=== PATIENT | female | born 1940 | race Caucasian/White ===

== ENCOUNTER 2023-06-29 19:06 | Emergency (ER) | payer MEDICARE, BC, SELFPAY ==
[2023-06-29 19:08] VITALS: BP 135/82
--- NOTE | 2023-06-29 21:02 | ED.MUSCINJ ---
HPI-Injury
General
Chief Complaint: Fall
Source: patient
Exam Limitations: none
Time Seen by Provider: 06/29/23 20:43
Travel History
Have you had any contact with someone who has COVID-19?: No
Do you have any symptoms of coronavirus? Fever > 100 degrees, chills, cough, shortness of breath, sore throat, loss of taste or smell, muscle aches, or headache?: No
History of Present Illness-Injury
Initial Injury comments:
83 year old female presents after slip and fall at home. She complains of left wrist/forearm pain and mentioned to me left hip pain. NO head injury. No neck or back pain. Not anticoagulated. Lives independently. No other complaints at this
time.
Past History
Past History
ED Past Medical History: Other (Agree with documented past medical history Patient self catheterizes)
ED Past Surgical History: Other (Agree with documented past surgical history)
Social History
Tobacco: Non-smoker
Personal: Single
Living: alone
Phy Exam
Physical Exam
Physical Exam:
General: well appearing female, NAD.
HEENT: NC/AT PERRL
Heart: RRR, no murmurs
Lungs: CTA bilaterally
MSK: tender to left wrist with mild left wrist swelling, dorsally
Left hip slightly tender laterally, no deformities
Ext: No cyanosis
Neuro: Alert and oriented x 3. No facial asymmetry
Injury Course
Orders/Labs/Results
Orders:
Orders
06/29/23 19:10
CR Elbow - Left Min 3 Views Urgent
Comment:
Reason For Exam: injury
CR Forearm - Left 2 View Urgent
Comment:
Reason For Exam: injury
CR Wrist - Left Min 3 Views Urgent
Comment:
Reason For Exam: injury
06/29/23 20:52
[place] Wrist Left-Treatment ONCE
CR Hip - LT w/wo Pel 2-3 Vw* Urgent
Comment:
Reason For Exam: pain, left hip after fall
Include a pelvis x-ray?: Yes
06/29/23 22:10
Acetaminophen [Tylenol] 650 mg PO NOW STA
MDM/Problems Addressed
Differential Diagnosis Includes:
Mechanical fall with left wrist pain - sprain vs fracture vs dislocation
Left hip pain - contusion vs fracture
Xrays left wrist negative for fracture. Will place in universal splint
*Critical Care Note
Total Time (30-74mins, 75-104mins- exclusive of procedures): Not Applicable
Update Note
Update Note:
X-ray of the left hip also negative. Patient reassured. Stable for discharge back to facility
ED Attending Note
-
Portions of this chart may have been created with voice recognition software.� Occasional wrong word or��sound alike� substitutions may have occurred due to the inherent limitations of voice recognition software.
Discharge Plan
Departure
Patient Disposition: Home (Routine Discharge)
Date of Disposition: 06/29/23
Time of Disposition: 22:19
Patient with high blood pressure during this ER visit?: No
Discharge Problem:
Left wrist sprain
Instructions: Contusion (DC)
Referrals:
Penny Ridley, [Family Provider] -
Activity Restrictions/Additional Instructions:
Use Tylenol for pain. Use splint for comfort. Ice for swelling. Return if worse
Interventions
Interventions:
*Risk Screen - Suicide Last Done: 06/29/23 19:08
*General Assessment Last Done: 06/29/23 19:08
ED- Fall Risk Assessment Last Done: 06/29/23 21:27
ED-Musculoskeletal Assessment Last Done: 06/29/23 21:27
ED- Neurological Assessment Last Done: 06/29/23 21:27
ED-Skin Assessment Last Done: 06/29/23 21:28
[2023-06-29] MEDS: TYLENOL 650 MG PO (22:18)
== END 2023-06-29 23:44 | disposition home or self-care (01) ==
LOC: EMR 19:06
PROVIDERS: EMERGENCY PHYSICIAN Emergency Medicine; FAMILY PHYSICIAN Internal Medicine
DX: S63.502A Unspecified sprain of left wrist, initial encounter (principal); W01.0XXA Fall on same level from slipping, tripping and stumbling without subsequent striking against object, initial encounter; Z96.642 Presence of left artificial hip joint
CPT/HCPCS: 99283; 29125; 73080; 73090; 73110; 73502

== ENCOUNTER 2024-02-26 11:07 | Inpatient (IN) | payer MEDICARE, BC, SELFPAY ==
[2024-02-26] VITALS (13 sets, daily range): BP systolic 113–157; BP diastolic 58–136; BMI 25.8; BMI 26.1
[2024-02-26 06:53] LABS: % Eosinophils 2.9 % (0-6); % Immature Granulocytes 0.6 % (0-0.5); % Lymphocytes 10.4 % (20.5-51.1); % Monocytes 10.1 % (1.7-9.3); Absolute Basophils 0.1 10^3/uL (0-0.2); Absolute Eosinophils 0.2 10^3/uL (0-0.7); Absolute Lymphocytes 0.7 10^3/uL (1.2-3.4); Absolute Monocytes 0.7 10^3/uL (0.1-0.6); Absolute Neutrophils 5.4 10^3/uL (1.4-6.5); Hematocrit 28.2 % (37.0-47.0); Hemoglobin 8.4 g/dL (12.0-16.0); Mean Corp Hgb Conc. 29.8 g/dL (33.0-37.0); Mean Corpuscular Hgb 21.1 pg (27.0-31.0); Mean Corpuscular Volume 70.7 fL (81.0-99.0); Mean Platelet Volume 10.3 fL (7.4-10.4); Nucleated Red Blood Cells % 0 %; Platelet Count 437 10^3/uL (130-400); Red Blood Cell Count 3.99 10^6/uL (4.20-5.40); Red Cell Dist. Width 16.5 % (11.5-14.5); White Blood Cell Count 7.1 10^3/uL (4.8-10.8)
[2024-02-26 07:05] LABS: ALT (SGPT) 16 U/L (0-35); AST (SGOT) 22 U/L (14-36); Albumin 4.3 g/dl (3.5-5.0); Alkaline Phosphatase 72 U/L (38-126); Blood Urea Nitrogen 40 mg/dl (7-17); Calcium 9.7 mg/dl (8.4-10.2); Carbon Dioxide 21 mmol/L (22-30); Chloride 108 mmol/L (98-107); Estimated Creatinine Clearance 27 ml/min; Glucose 131 mg/dl (70-99); Sodium 142 mmol/L (135-145); Total Bilirubin 0.8 mg/dl (0.2-1.3); Total Protein 6.8 g/dl (6.3-8.2); eGFR 40.05
[2024-02-26 07:19] LABS: Troponin I 0.082 ng/ml
--- NOTE | 2024-02-26 07:41 | ED.GENMED ---
History of Present Illness
General
Chief Complaint: Chest Pain
Source: patient
Time Seen by Provider: 02/26/24 07:21
History of Present Illness
History of Present Illness:
84yoF with a history of coronary artery disease, atrial fibrillation, hypertension, hyperlipidemia, CKD, and chronic anemia presenting via EMS for evaluation of chest pain. Pain initially started at 10:30 PM yesterday evening after she ate some
peanut butter. She reports an intense pain in the center of her chest. Pain began radiating across the chest into her back and right shoulder. Pain persisted throughout the night and she was unable to sleep due to her pain. She called EMS this
morning due to her persistent symptoms. She received aspirin and nitroglycerin prehospital with complete resolution of her symptoms. She is currently asymptomatic. She denies any diaphoresis or nausea. She does endorse exertional dyspnea for the
past 6 months. She follows with cardiology at [place]. She had a cardiac catheterization about 4 years ago and a stent was placed at that time.
Past History
Past History
ED Past Medical History: Other (Agree with documented past medical history Patient self catheterizes)
ED Past Surgical History: Other (Agree with documented past surgical history)
Social History
Tobacco: Non-smoker
Personal: Single
Living: alone
Phy Exam
General Physical Exam
General Presentation: well appearing and no apparent distress
General age: appears stated age
General Skin: warm and dry
General Habitus: normal
General Mental: alert
ENT Exam
ENT Exam: normocephalic
Cardiovascular Exam
Cardiovascular Exam: no edema, normal peripheral pulses (2+ DP pulses bilaterally) and systolic murmur
Pulmonary Exam
Pulmonary Exam: lungs clear, no respiratory distress, no rales, no crackles, no rhonchi and no wheezing
[place] Coma Scale
Eye Opening: Spontaneous
Verbal Response: Oriented
Motor Response: Obeys Commands
GCS Total Score: 15
Skin Exam
Skin Exam: normal color and warm/dry
Psychiatric Exam
Psychiatric Exam: normal mood/affect
Scores
Heart Score for Chest Pain Patients
STEMI patient?: No
History: Highly Suspicious
ECG: Nonspecific Repolarization
Age: >/= 65 years
Risk Factors: >/= 3 Risk Factors or History of CAD
Troponin: >1 - <3 x Normal Limit
Heart Score for Chest Pain Patients: 8
Heart Score Risk: 72.7 % MACE over next 6 weeks
Course
Orders/Labs/Results
Orders:
Orders
02/26/24 06:16
ECG [Electrocardiogram (*1)] Urgent
Reason for Study: Chest Pain
02/26/24 06:17
EKG- Treatment ONCE
02/26/24 06:34
Complete Blood Count/With Diff Urgent
Comprehensive Metabolic Panel Urgent
Troponin I Urgent
02/26/24 06:35
PTT Urgent
Comment: Obtain baseline before beginning heparin infusion if not already collected
02/26/24 07:[address] See Dose Instructions PO NOW STA
Discontinue all Active Warfarin orders?: Yes
CR Chest - 2 Views Urgent
Comment:
Reason For Exam: CP
02/26/24 07:[address] Non Medication Order As Directed
Physician Order: PTT 6 hours after initial start of Heparin infusion
Above order entered?: Yes
02/26/24 07:45
CARDIOLOGY CONSULT Urgent
Consulting Provider: Chris Benson
Was physician already notified: Yes
Heparin 09723 Units/250 ml 25,000 units in 250 ml IV PER PROTOCOL
Weight to be used for heparin protocol in kilograms (kg):: 68.1
Protocol:: Cardiac Tx/Acute Coronary
PTT Goal Range to be used:: PTT 73 to 111 seconds
Order type:: Initial
INITIAL Infusion Dose (UNITS/KG/hr) & then follow protocol:: 12 units/kg/hr
Infusion Dose in UNITS/hr & then follow protocol (UNITS/hr):: 800
INFUSION RATE in mL/hr & then follow protocol (mL/hr):: 8
PTT less than or equal to 64 seconds:: Increase rate by 200 units/hr (+ 2 mL/hr)
PTT 64.1 to 72.9 seconds:: Increase rate by 100 units/hr (+ 1 mL/hr)
PTT 73 to 111 seconds:: Target Range. No change in rate.
PTT 111.1 to 130.9 seconds:: Decrease rate by 100 units/hr (- 1 mL/hr)
PTT 131 to 199.9 seconds:: HOLD for 1 hr. Then decrease rate by 200 units/hr (- 2 mL/hr)
PTT greater than or equal to 200 seconds:: HOLD for 2 hrs & Notify Provider. Then decrease by 200 units/hr (-
2 mL/hr)
Lab follow-up:: Each change, PTT q6h until 2 consecutive are therapeutic. Then PTT
daily.
02/26/24 08:[address] See Dose Instructions IV DIRECTED
02/26/24 08:17
CARDIOLOGY CONSULT Routine
Consulting Provider: Chris Benson
Was physician already notified: Yes
Reason for consult: NSTEMI and Chest Pain
02/26/24 Lunch
NPO
Allow oral meds: Yes
Allow clear liquids: Sips of Clears
NPO with Ice Chips: Yes
02/26/24 10:32
Add On- LAB Routine
Tests Added?: Lipase
02/26/24 10:50
Admit/Transfer Patient As Directed
Co-Sign Provider:
Level of Care: Inpatient admission
Assign to:: IVU
Physician / Group: Dr. Miah Duran/Hospitalists
Diagnosis: Suspected NSTEMI
Reason for Hospitalization: Suspected NSTEMI
Expected length of stay greater than two midnights?: Yes
ELOS- Estimated Length of Stay in days: 3
I certify the patient meets the requirements for IP care: Yes
PRN Pain Medication Management As Directed
May give lesser potent ordered pain med per pt: Yes
preference::
Protocol:: Medication orders for pain may be administered in a
manner that supports deferring to patient preference
when the pt is:
- Requesting an ordered lesser potent pain medication.
Least to most potent pain medications are defined
as: acetaminophen < NSAID < tramadol < opioids
(morphine, oxycodone, hydromorphone).
- Requesting a lesser dose of the same medication IF
ORDERED.
- Requesting a less intrusive route of administration
if both routes are prescribed by the provider (PO <
IV).
02/26/24 10:51
Code Status As Directed
Resuscitation Status: Full Code
02/26/24 11:06
US Abdomen Complete/Upper Routine
Comment:
Reason For Exam: Pancreatitis?
02/26/24 12:25
Troponin I Q6H
02/26/24 13:27
Bisacodyl [Dulcolax] 10 mg RECTAL [id number] PRN
Docusate W/Senna [Senokot-S] 1 tablet PO BIDPRN PRN
Polyethylene Glycol Powder [Miralax] 17 grams PO DAILYPRN PRN
02/26/24 13:27
Activity As Directed
Activity Level: As Tolerated
Pneumatic Compression Sleeves As Directed
Type: Knee high
Vital Signs As Directed
Frequency: Per unit guidelines
DX Deep Vein Thrombosis Video Routine
02/26/24 14:30
PTT Urgent
02/26/24 18:30
Troponin I Q6H
02/27/24 00:30
Troponin I Q6H
02/27/24 06:00
Basic Metabolic Panel IN AM
Complete Blood Count/With Diff IN AM
Magnesium IN AM
02/27/24 06:30
Troponin I Q6H
02/28/24 06:00
Basic Metabolic Panel IN AM
Complete Blood Count/With Diff IN AM
Magnesium IN AM
02/29/24 06:00
Basic Metabolic Panel IN AM
Complete Blood Count/With Diff IN AM
Magnesium IN AM
Abnormal Lab Results
02/26/24
06:34
RBC 3.99 L 10^6/uL
(4.20-5.40)
Hgb 8.4 L g/dL
(12.0-16.0)
Hct 28.2 L %
(37.0-47.0)
MCV 70.7 L fL
(81.0-99.0)
MCH 21.1 L pg
(27.0-31.0)
MCHC 29.8 L g/dL
(33.0-37.0)
RDW 16.5 H %
(11.5-14.5)
Plt Count 437 H 10^3/uL
(130-400)
Absolute Lymphs (auto) 0.7 L 10^3/uL
(1.2-3.4)
Absolute Monos (auto) 0.7 H 10^3/uL
(0.1-0.6)
Immature Gran % 0.6 H %
(0-0.5)
Lymphocytes % 10.4 L %
(20.5-51.1)
Monocytes % 10.1 H %
(1.7-9.3)
Chloride 108 H mmol/L
(98-107)
Carbon Dioxide 21 L mmol/L
(22-30)
BUN 40 H mg/dl
(7-17)
Creatinine 1.3 H mg/dL
(0.6-1.0)
Glucose 131 H mg/dl
(70-99)
Troponin I 0.082 H* ng/ml
02/26/24 06:34
02/26/24 06:34
Vital Signs
Initial and Last Documented VS:
Initial Vital Signs
Temp Pulse Resp BP Pulse Ox
98.0 F 75 16 125/84 98
02/26/24 06:26 02/26/24 06:26 02/26/24 06:26 02/26/24 06:26 02/26/24 06:26
Last Documented Vital Signs
Temp Pulse Resp BP Pulse Ox
98.1 F 79 22 134/91 99
02/26/24 13:20 02/26/24 13:30 02/26/24 13:20 02/26/24 13:20 02/26/24 13:20
MDM/Problems Addressed
Differential Diagnosis Includes:
84yoF here with chest pain. Started last night after eating peanut butter. Radiates to R shoulder and back. Now resolved after receiving aspirin and NTG prehospital. Hx of CAD. She is afebrile and hemodynamically stable. She is well appearing in no
distress. Exam is reassuring. Differential diagnosis includes but is not limited to: ACS, GERD, esophagitis, less likely PE, less likely aortic dissection
Cardiac labs and EKG obtained in triage. EKG shows NSR with PACs and nonspecific ST/T changes. Troponin elevated at 0.082. CXR and IV heparin ordered. Cardiology notified of patient and she was admitted for further evaluation and management.
*EKG
Interpreted by ED Provider?: Yes
EKG Intrepretation Date: 02/26/24
Heart Rate: 71
Rate: normal
Rhythm: sinus and PAC's
[place]: normal axis
Interval: normal interval
QRS Pattern: normal QRS
Ischemia: non-specific ST changes
*Critical Care Note
Total Time (30-74mins, 75-104mins- exclusive of procedures): Not Applicable
ED Attending Note
-
Portions of this chart may have been created with voice recognition software.� Occasional wrong word or��sound alike� substitutions may have occurred due to the inherent limitations of voice recognition software.
Discharge Plan
Departure
Patient Disposition: Admit
Date of Disposition: 02/26/24
Time of Disposition: 07:46
Presentation/result/management discussed w/ accepting MD/DO: Hospitalist
Discharge Problem:
Non-ST elevation [place] (NSTEMI)
Interventions
Interventions:
*Risk Screen - Suicide Last Done: 02/26/24 06:18
*General Assessment Last Done: 02/26/24 06:44
*Neglect/Abuse Screening Last Done: 02/26/24 06:18
ED- Fall Risk Assessment Last Done: 02/26/24 06:45
*ED COVID-19 Vaccine History Last Done: 02/26/24 06:45
*Nursing Disposition Last Done: 02/26/24 13:21
ED- Cardiac Assessment Last Done: 02/26/24 07:44
Discharge Date and Time
Discharge Date/Time: 02/26/24 13:21
[2024-02-26] MEDS: HEPARIN 25000 UNITS/250 ML IV (08:29)
--- NOTE | 2024-02-26 08:45 | CON.CAR ---
Addendum entered and electronically signed by Chris Benson MD 02/26/24 12:51:
Will make NPO after MN for possible cor angiography in AM
Original Note:
Consultation
Consultation Request
Date/Time Consultation Requested: February 26, 2024
Date/Time Consultation Performed: February 26, 2024
Requesting Provider: Hospitalist service
Performing Provider: Dr Chris Benson
Reason for Consultation: Non-ST segment elevation myocardial infarction
Medical History
-
Chief Complaint: Chest pain
History of Present Illness:
84-year-old woman with known history of coronary artery disease, atrial fibrillation, hypertension, dyslipidemia, chronic kidney disease, chronic anemia presented to [facility] emergency department via emergency medical services for
evaluation of chest pain. She notes that her chest pain started last night at around 10:30 PM after she had something to eat. She describes this as an intense pain at the center of her chest which radiated across the chest to her right shoulder
and also into her back. Pain persisted through the night and was unable to sleep well. She called emergency medical services this morning due to continued symptoms. On route she received aspirin as well as nitroglycerin leading to complete
resolution of her symptoms. She is asymptomatic on arrival to the emergency department. She reports that for the preceding 6 months she has had new dyspnea on exertion.
- Presenting EKG demonstrates sinus rhythm with PACs and nonspecific ST and T wave abnormalities
- Blood work demonstrates initial troponin of 0.082, BUN and creatinine of 40 and 1.3, sodium 142, potassium 4, hemoglobin and hematocrit of 8.4 and 28
- Chest x-ray demonstrates a cardiac silhouette which is top normal in size. There is an implanted loop recorder (LINQ) evident. There is no vascular congestion.
Past medical history:
Coronary artery disease, she reports 'stent placed' at [facility] approximately 4 years ago
Chronic kidney disease
Chronic anemia
Atrial fibrillation
Hypertension
Social History
Tobacco: Non-Smoker
Alcohol: None
Drug: None
Personal: Single
Living: Alone
Family History
Family History: Reviewed & Not Pertinent
Allergies / Home Medications
Allergy/AdvReac Type Severity Reaction Status Date / Time
NKA - No Known Allergies Allergy Unknown Uncoded 02/26/24 06:23
Review of Systems
-
History Source: Patient
All other systems: Negative unless noted
Constitutional: No Symptoms
EENT: No Symptoms
Respiratory: No Symptoms
Cardiac: Chest Pain (resolved)
Abdomen/GI: No Symptoms
: No Symptoms (has chronic indwelling suprapubic catheter)
Musculoskeletal: No Symptoms
Skin: No Symptoms
Neurological: No Symptoms
Physical Exam
Vital Signs
Temp Pulse Resp BP Pulse Ox
98.0 F 71 16 125/84 98
02/26/24 06:26 02/26/24 06:30 02/26/24 06:26 02/26/24 06:26 02/26/24 07:44
Lab Results
02/26/24 06:34
02/26/24 06:34
Troponin I 0.082 ng/ml H* 02/26/24 06:34
Physical Exam
General: Well Developed, Well Nourished, No Apparent Distress and Comfortable
HEENT: Normocephalic, Anicteric and Moist Mucous Membranes
Respiratory: Clear and Non Labored Respirations
Cardiac: S1/S2, Regular Rhythm and Murmur (/ AHSM, no rubs, nl PMI)
Breast: Deferred by me
GI: Soft, Non Tender, Non Distended and Normal Bowel Sounds
Rectal: Deferred by Provider
Musculoskeletal: No Clubbing, No Cyanosis and No Edema
Skin: Warm and Dry
Neuro: Awake, Alert, Oriented and AO x 3
Psych: Calm
Impression / Plan
-
Assessment:
Non-ST segment elevation myocardial infarction
Coronary artery disease, she reports 'stent placed' at [facility] approximately 4 years ago
Chronic kidney disease
Chronic anemia
Atrial fibrillation
Hypertension
Recommendations:
- Agree with IV heparin
- Asa 81 mg daily
- betablocker (is on metoprolol tartrate 37.5 BID as outpatient) will start Succinate 50 mg BID as I suspect HR and BP will tolerate
- On pravastatin 20 mg as outpatient, will instead start atorvastatin 20 mg daily
- Check Lipids in AM
- Also on Norvasc for HTN as outpatient 10 mg daily, medicine to resume if BP remains elevated
- Eventual consideration for ischemic eval, but trend troponin and ECGs for now
total time 81 min
Data Reviewed
-
EKG: Tracing Personally Visualized and interpreted
Radiology: Report Reviewed by me
Medical Tests (Nuc Med, Echo etc): Report Reviewed by me
Labs: Labs Reviewed by me
--- NOTE | 2024-02-26 09:01 | HPS.HSE ---
Family Physician
-
Family Physician: Penny Ridley
Chief Complaint
-
Epigastric Pain
History of Present Illness
84 y/o female with past medical history of coronary artery disease, atrial fibrillation, hypertension, dyslipidemia, chronic kidney disease, chronic urostomy, and chronic anemia presented with epigastric pain. Patient says she has shortness of
breath all the time. She said that prior to coming in, she was cleaning the close, ironing and doing laundry, she then became hungry and 3 teaspoons of peanut butter, after that she felt that she had pain going from her epigastric area to her back.
The pain was relieved with nitroglycerin.
She also reported chronic constipation.
Medical History
Past Medical History
Past Medical History: Reports Other (As per HPI above)
Past Surgical History: Reports Urological (Urostomy)
Social History
Tobacco: Non-smoker
Alcohol: Occasional
Drug: None
Family History
Family History: Not pertinent
Allergies / Home Medications
Allergies reflects when Allergies were last updated in [facility].
Home Medications with original date entered in [facility]
Allergy/Medication List:
Allergies
Allergy/AdvReac Type Severity Reaction Status Date / Time
NKA - No Known Allergies Allergy Unknown Uncoded 02/26/24 06:23
Home Medications
acetaminophen 500 mg tablet 1,000 mg PO BID pain/fever 02/26/24
amlodipine 10 mg tablet 10 mg PO HS Blood Pressure 02/26/24
aspirin 81 mg chewable tablet 81 mg PO DAILY Blood Clot Prevention/Tx 02/26/24
cranberry fruit concentrate 250 mg chewable tablet (Azo Cranberry) 500 mg PO DAILY Supplement 02/26/24
cyanocobalamin (vitamin B-12) 500 mcg tablet 500 mcg PO DAILY Supplement 02/26/24
duloxetine 30 mg capsule,delayed release 30 mg PO DAILY Depression 02/26/24
famotidine 40 mg tablet 40 mg PO DAILY Gastrointestinal Issue 02/26/24
guaifenesin 600 mg tablet, extended release 12 hr (Mucus Relief ER) 600 mg PO DAILY Cough 02/26/24
isosorbide dinitrate 30 mg tablet 30 mg PO DAILY Blood Pressure 02/26/24
levothyroxine 112 mcg tablet 112 mcg PO MOTUWETHFRSA Thyroid 02/26/24
levothyroxine 112 mcg tablet 168 mcg PO LITTLE Thyroid 02/26/24
metoprolol tartrate 25 mg tablet 37.5 mg PO BID Blood Pressure 02/26/24
pravastatin 20 mg tablet 20 mg PO HS High Cholesterol 02/26/24
prednisone 2.5 mg tablet 7.5 mg PO DAILY Anti-Inflammatory 02/26/24
quetiapine 25 mg tablet 25 mg PO HS Sleep 02/26/24
Review of Systems
-
A 12 point ROS was completed and negative except as noted: Yes
Physical Exam
Vital Signs
Vital Signs
Temp Pulse Resp BP Pulse Ox
98.0 F 80 18 157/84 99
02/26/24 06:26 02/26/24 08:00 02/26/24 08:00 02/26/24 08:00 02/26/24 08:00
Physical Exam
General: No Apparent Distress, Comfortable and Other (Hard of Hearing)
HEENT: NormoCephalic and Moist mucous membranes
Respiratory: Clear
Cardiac: S1/S2, Regular Rhythm and Murmur (systolic)
GI: Soft, Non Tender and Normal Bowel Sounds
Musculoskeletal: No Cyanosis and No Edema
Skin: Warm and Dry
Neuro: Awake, Alert and AO x 3
Psych: Calm and Intact Judgment/Insight
Laboratory Results
-
02/26/24 06:34
02/26/24 06:34
Laboratory Results
APTT 30.0 Sec (23.4-35.0) 02/26/24 06:35
Total Bilirubin 0.8 mg/dl (0.2-1.3) 02/26/24 06:34
AST 22 U/L (14-36) 02/26/24 06:34
ALT 16 U/L (0-35) 02/26/24 06:34
Alkaline Phosphatase 72 U/L (38-126) 02/26/24 06:34
Troponin I 0.082 ng/ml H* 02/26/24 06:34
Impression/Plan
-
Assessment/Plan
Presentation with Epigastric Pain
Suspected NSTEMI
Coronary artery disease
-Per ER provider communication via [place] Text today, patient received Aspirin 325 mg prior to arrival in the emergency room
-Continue Heparin Drip
-Continue Aspirin 81 mg daily
-Trend troponins
-Patient is on Lopressor BID outpatient --> per cardiology, switch to Metoprolol Succinate 50 mg BID
-Per cardiology discussion via [place] Text communication, okay to hold Isosorbide Dinitrate 30 mg daily for today but okay to resume tomorrow
-Continue statin; consider switching to high-intensity Lipitor on discharge
-Lipid panel
-Discussed case with GI (given epigastric pain and pain after eating, possible dysphagia) who said continue cardiac work-up for now, can check Lipase and order abdominal ultrasound to check for any pancreatitis, no need for GI consult at this time
Atrial fibrillation
-Continue Heparin Drip and beta rachid
Hypertension
Hyperlipidemia
Chronic kidney disease
-Cr 1.3
-Unknown baseline
Chronic urostomy
Chronic anemia
-Monitor CBC
Osteoarthritis
History of Rheumatoid Arthritis (as report by patient)
-Continue Prednisone
Chronic Constipation
-PRN bowel regimen
DVT Prophylaxis: Heparin Drip
Code Status: Full Code
NSTEMI needing Heparin Drip and monitoring in the IVU/cardiac unit is a high-risk encounter.
--- NOTE | 2024-02-26 13:28 | PTCARENOTE ---
Pt arrived from ED. received report from ED RN. AOx3, no complaints of pain or discomfort. heparin gtt infusing per protocol.
[2024-02-26] MEDS: VITAMIN B-12 500 MCG PO (14:57)
[2024-02-26] MEDS: MUCINEX 600 MG PO (14:58)
[2024-02-26] MEDS: PEPCID 20 MG PO (14:58)
[2024-02-26] MEDS: CYMBALTA DELAYED RELEASE 30 MG PO (14:58)
[2024-02-26] MEDS: DELTASONE 7.5 MG PO (14:58)
[2024-02-26] MEDS: TOPROL XL 50 MG PO ×2 (14:58→20:15)
[2024-02-26] MEDS: SYNTHROID PO (16:32)
--- NOTE | 2024-02-26 16:38 | PTCARENOTE ---
Pt c/o brief chest pain. unable to rate on 0-10 scale because 'it came and went so quick'. Dr Duran and Dr Benson made aware, orders received. Will continue to monitor.
[2024-02-26 16:48] LABS: APTT 66.5 Sec (23.4-35.0)
[2024-02-26 17:30] LABS: Lipase 260 U/L (23-300)
[2024-02-26] MEDS: TYLENOL 1000 MG PO (20:10)
--- NOTE | 2024-02-26 21:06 | PTCARENOTE ---
Received patient at change of shift. Patient awake, alert, and oriented in bed. Pt denies any chest pain. BP 123/72, NSR w/ first degree 77-80, 98% on room air. Heparin drip running at 900 units/hr in left AC. Discussed being NPO at midnight for
possible cardiac cath in the morning. Patient verbalized understanding. Call rosales within reach.
[2024-02-26] MEDS: NORVASC 10 MG PO (22:28)
[2024-02-26] MEDS: PRAVACHOL 20 MG PO (22:28)
[2024-02-26] MEDS: SEROQUEL 25 MG PO (22:29)
[2024-02-26 22:55] LABS: APTT 89.1 Sec (23.4-35.0)
[2024-02-27] VITALS (9 sets, daily range): BP systolic 84–126; BP diastolic 49–75; BMI 26.4
--- NOTE | 2024-02-27 05:31 | PTCARENOTE ---
Patient rested well all night. No c/o of chest pain. Patient has been NPO since midnight.
[2024-02-27 05:36] LABS: APTT 136.5 Sec (23.4-35.0)
[2024-02-27 05:40] LABS: % Basophils 1.1 % (0-2); % Immature Granulocytes 0.3 % (0-0.5); % Lymphocytes 18.1 % (20.5-51.1); % Monocytes 10.5 % (1.7-9.3); Absolute Basophils 0.1 10^3/uL (0-0.2); Absolute Eosinophils 0.2 10^3/uL (0-0.7); Absolute Lymphocytes 1.1 10^3/uL (1.2-3.4); Absolute Monocytes 0.7 10^3/uL (0.1-0.6); Absolute Neutrophils 4.2 10^3/uL (1.4-6.5); Hematocrit 26.7 % (37.0-47.0); Hemoglobin 7.9 g/dL (12.0-16.0); Mean Corp Hgb Conc. 29.6 g/dL (33.0-37.0); Mean Corpuscular Hgb 21.1 pg (27.0-31.0); Mean Corpuscular Volume 71.4 fL (81.0-99.0); Mean Platelet Volume 10.7 fL (7.4-10.4); Nucleated Red Blood Cells % 0 %; Platelet Count 368 10^3/uL (130-400); Red Blood Cell Count 3.74 10^6/uL (4.20-5.40); Red Cell Dist. Width 16.4 % (11.5-14.5); White Blood Cell Count 6.3 10^3/uL (4.8-10.8)
[2024-02-27 05:48] LABS: Blood Urea Nitrogen 33 mg/dl (7-17); Calcium 9.3 mg/dl (8.4-10.2); Carbon Dioxide 21 mmol/L (22-30); Chloride 111 mmol/L (98-107); Estimated Creatinine Clearance 27 ml/min; Glucose 95 mg/dl (70-99); Magnesium 2.6 mg/dl (1.6-2.3); Potassium 4.1 mmol/L (3.5-5.1); Sodium 142 mmol/L (135-145); eGFR 44.08
[2024-02-27] MEDS: SYNTHROID 112 MCG PO (06:14)
--- NOTE | 2024-02-27 08:04 | PTCARENOTE ---
Assumed care of pt from prev nsg shift; Pt AAOx3, drowsy but easily arousable. Pt is very [facility] & does not have hearing aids here w/her. Pt's VS stable w/HR in the 50's-60's & BP this AM 112/69. Pt is SB/SR w/1st deg AV block on telemetry monitoring.
Pt w/IV Heparin infusing through patent IV line as ordered. Pt w/no c/o CP or SOB this AM. Plan of care discussed w/pt & pt w/no addtl needs at this time.
--- NOTE | 2024-02-27 08:48 | W.PN.CARDCBS ---
Addendum entered and electronically signed by Jorge Luis Rodriguez DO 02/27/24 11:22:
I saw and examined the patient.
The Operating Manager's note was reviewed and I agree with the note.
Comment:
Plan:
Eventual consideration for cath given NSTEMI with trop peak at 2.
Echo pending
In light of acute on chronic worsening anemia would consider GI eval.
Monitor H/H. If hemoglobin continues to drop would consider transfusion to support H/H
Received and and reviewed note from outside potato chip packaging machine operator. Hb was 10 in Jan 2023.
Obtain records including cath from primary manager cancer
Check fasting lipids
Discussed with primary service.
Original Note:
Today's Communication / Plan
-
Called patient's Hematology and cardiology at [facility] and got records
Cath postponed until anemia sorted out, patient cannot have stent with dropping Hgb
Impression / Plan
-
PCP: Dr. Ridley at [facility]
Heme: Dr. Duncan Singer Hematology at [place]
Cardiology: Dr. Rossi,
Impression:
Admitted with chest pain 02/26/24
NSTEMI, peak Troponin 2.07
CAD
BMS x2 to Diag-2016
Chronic iron deficiency anemia
h/o GIB with cratered ulcer and transfusions at [facility] 2019
CKD 3b
Paroxysmal Afib
Not chronically anticoagulated for unclear reasons
Hypertension
Hep C, acquired from transfusion, treated
FMR
Echo 05/2021: [facility] study, Normal EF, mild AI
Echo 02/27/24: Study pending
Plan:
-Patient came to [facility] 02/26/24 with chest pain and Troponin peaked at 2.07 and is being managed as a NSTEMI.
-ECGs reviewed by me since admission show SR without ST elevations.
-Patient has been pain free since admission. Remains on Heparin gtt.
-Outpatient dose of aspirin 81 mg daily continued
-Outpatient dose of Lopressor changed to Toprol XL 50 mg BID
-Check CVE, ordered by me
-Outpatient dose of pravastatin changed to atorvastatin 20 mg daily
-Patient with h/o BMS x2 to Diag-1 at [facility] in 2016. Dr[address] Rossi's office is working on obtaining cath report.
-Hgb dropped from 8.4 on admission to 7.9 on 02/27/24. Patient follows with Hematology at [facility] for h/o blood loss anemia. Hgb was 13.2 on 10/25/23.
-Called patient's potato chip packaging machine operator at [facility], records reviewed and summarized. Last capsule endoscopy in 2013 showed a normal small bowel, colonoscopy 2018 without significant bleeding source, last upper endoscopy was 02/15/20 and patient had a
cratered ulcer. Patient was transfused during her 01/2020 admission to [facility]. Patient last saw her Non Profit Director 11/24/23 and last iron infusion was 03/2023. Plan was to follow up labs 03/2024 and determine if another round of IV iron was needed.
-Also called patient's primary manager cancer and they are also sending records, but based on our 9 minute phone call the patient has a h/o syncope and had loop recorder placed, but it reached end of battery life and was not replaced. Loop previously
detected paroxysmal Afib and patient has a h/o CVA, but was not on OAC due to h/o iron def anemia and GIB. Patient also has a h/o CAD as noted above.
-Outpatient dose of amlodipine 10 mg daily has been continued
-64 minutes in face to face time, obtaining records, coordinating care
HPI: 84-year-old woman with known history of coronary artery disease, atrial fibrillation, hypertension, dyslipidemia, chronic kidney disease, chronic anemia presented to [facility] emergency department via emergency medical services for
evaluation of chest pain. She notes that her chest pain started last night at around 10:30 PM after she had something to eat. She describes this as an intense pain at the center of her chest which radiated across the chest to her right shoulder
and also into her back. Pain persisted through the night and was unable to sleep well. She called emergency medical services this morning due to continued symptoms. On route she received aspirin as well as nitroglycerin leading to complete
resolution of her symptoms. She is asymptomatic on arrival to the emergency department. She reports that for the preceding 6 months she has had new dyspnea on exertion.
Progress Note - Hotel Service Supervisor
Subjective
Date of Service: February 27, 2024
She says she is tired, no chest pain
Objective
Labs:
02/27/24 05:03
02/27/24 05:03
Labs
Hgb 7.9 g/dL (12.0-16.0) L 02/27/24 05:03
Hct 26.7 % (37.0-47.0) L 02/27/24 05:03
Plt Count 368 10^3/uL (130-400) 02/27/24 05:03
APTT 136.5 Sec (23.4-35.0) H 02/27/24 05:03
Sodium 142 mmol/L (135-145) 02/27/24 05:03
Potassium 4.1 mmol/L (3.5-5.1) 02/27/24 05:03
BUN 33 mg/dl (7-17) H 02/27/24 05:03
Creatinine 1.2 mg/dL (0.6-1.0) H 02/27/24 05:03
Glucose 95 mg/dl (70-99) 02/27/24 05:03
Troponins
02/26/24 02/26/24 02/26/24
06:34 12:25 12:48
Troponin I 0.082 H* 1.600 H* D Cancelled
02/26/24 02/26/24 02/26/24
13:00 16:28 22:36
Troponin I Cancelled 2.070 H* D 1.620 H*
02/27/24
05:03
Troponin I 1.260 H*
Vital Signs and I&O:
Vital Signs
Temp Pulse Resp BP Pulse Ox
98.0 F 62 18 112/69 97
02/27/24 07:57 02/27/24 07:54 02/27/24 07:57 02/27/24 07:54 02/27/24 07:57
Vital Signs
Temp Pulse Resp BP Pulse Ox
98.0 F 62 18 112/69 97
02/27/24 07:57 02/27/24 07:54 02/27/24 07:57 02/27/24 07:54 02/27/24 07:57
Intake & Output
02/25/24 02/26/24 02/27/24 02/28/24
06:59 06:59 06:59 06:59
Intake Total 240 / 240
Output Total 1450 / 1450
Balance -1210 / -1210
Physical Exam
Physical Exam
GEN: AAOx3
HEENT: EOMI, MMM
LUNGS: No audible wheeze
CV: SR on tele
ABD: ND
EXT: No edema B/L
NEURO: Gross non-focal
SKIN: No rash
[2024-02-27] MEDS: SORBITRATE 30 MG PO (09:23)
[2024-02-27] MEDS: DELTASONE 7.5 MG PO (09:23)
[2024-02-27] MEDS: MUCINEX 600 MG PO (09:23)
[2024-02-27] MEDS: LOW STRENGTH ASPIRIN 81 MG PO (09:24)
[2024-02-27] MEDS: TYLENOL 1000 MG PO ×2 (09:24→20:38)
[2024-02-27] MEDS: VITAMIN B-12 500 MCG PO (09:24)
[2024-02-27] MEDS: TOPROL XL 50 MG PO (09:24)
[2024-02-27] MEDS: CYMBALTA DELAYED RELEASE 30 MG PO (09:25)
--- NOTE | 2024-02-27 09:57 | W.PN.HOSP.TC ---
Addendum entered and electronically signed by Vipul Keenan DO 02/27/24 16:13:
Informed by nursing of drop in blood pressure and bradycardia as well as repeat hemoglobin drop of 7.3.
Etiology of hypotension and bradycardia likely due to medication effect, she is on a higher dose of metoprolol. Will reduce metoprolol dose and hold for heart rate and blood pressure parameters. Discontinue amlodipine.
Drop in hemoglobin due to GI bleed. Will transfuse 1 unit of blood today. Recheck hemoglobin in the morning. Discussed with patient.
Original Note:
Today's Communication/Plan
-
Clear liquid diet
GI consult
Monitor hemoglobin
Anemia labs
Assessment / Plan
Assessment / Plan
Gen-AAOx3, NAD, hard of hearing
HEENT-NC, AT, anicteric, clear oral mm
Neck-supple
CV-reg, no M, +S1/S2
Lungs-clear B/L
Abd-soft, NT, ND
Ext-no edema
Musculoskeletal-no cyanosis, clubbing
Skin-warm and dry
Neuro-grossly non-focal
Psych-calm, cooperative
NSTEMI - hemodynamically stable. Continue IV heparin. Cardiac catheterization on hold given relatively acute anemia, will need further workup. Discussed with cardiology. Resume diet (clears) if okay with cardiology.
Troponin trending down now.
Presentation with epigastric abdominal pain. Abdominal ultrasound shows a mobile gallstone without cholecystitis.
Acute anemia -microcytic. Known history of iron deficiency, history of iron transfusions in the past. Records reviewed. Hemoglobin 7.9 this morning. Was 13 in September. Patient denies melena or hematochezia. Will check anemia labs. Consult
gastroenterology given known history of iron deficiency. Last colonoscopy, EGD was 2018 which did not reveal any bleeding source. Apparently had a capsule endoscopy 2013 that was unrevealing.
CKD 3b -renal function at baseline. Creatinine was 1.7 in May of this year, 1.2 currently.
CAD -history of 2 stents.
Atrial fibrillation -unknown type.
Essential hypertension -stable.
Hyperlipidemia -on pravastatin.
Hypothyroidism -continue levothyroxine.
Rheumatoid arthritis
Hearing impairment -uses hearing aids but they are currently at home.
IBS
Full code
Anticipated Discharge: > 48 hours
Subjective/Interval History
-
Date of Service: February 27, 2024
Patient seen and examined. No complaints.
Objective Data
-
Labs:
Laboratory Results
02/26/24 02/27/24 02/27/24
22:36 05:03 12:45
WBC 6.3
Hgb 7.9 L
Hct 26.7 L
Plt Count 368
APTT 89.1 H 136.5 H Pending
Sodium 142
Potassium 4.1
Chloride 111 H
Carbon Dioxide 21 L
BUN 33 H
Creatinine 1.2 H
Glucose 95
Calcium 9.3
Vital Signs:
Vital Signs
Temp Pulse Resp BP Pulse Ox
98.0 F 62 18 112/69 97
02/27/24 07:57 02/27/24 07:54 02/27/24 07:57 02/27/24 07:54 02/27/24 07:57
I&O
02/26/24 02/27/24 02/28/24
06:59 06:59 06:59
Intake Total 240 / 240
Output Total 1450 / 1450
Balance -1210 / -1210
Review of Systems
-
History Source: Patient
All other systems: Reviewed and negative
[2024-02-27 10:12] LABS: HDL Cholesterol 69 mg/dl; LDL Cholesterol, Calculated 58 mg/dl; Total Cholesterol 142 mg/dl (50-199); Triglyceride 76 mg/dl (10-149); Very Low Density Lipoprotein 15 mg/dl (0-30)
[2024-02-27 10:23] LABS: Total Iron Binding Capacity 385 ug/dl (265-497)
[2024-02-27 10:45] LABS: Iron < 20 ug/dl (37-170)
--- NOTE | 2024-02-27 10:57 | CM ---
Reviewed chart. Met with Mrs. Monreal to review discharge plans. She states prior to admission she resides alone in an apartment at [facility]. She states she has been there for five years. She states prior to admission she
ambulates with a rolling walker. She states she has had [facility] in the past. She is unsure if she has a prescription plan. Will need to see her current functional level to see if she will have any skilled care needs. Medical
work-up in progress. The discharge plan is to return home with [facility] if needed.
[2024-02-27 12:20] LABS: Ferritin 10.6 ng/ml (11.1-264.0)
[2024-02-27 12:51] LABS: Folate 14.3 ng/ml (2.76-20); Vitamin B12 890 pg/ml (239-931)
[2024-02-27 13:15] LABS: Reticulocyte Count 2.4 % (0.4-2.8)
[2024-02-27 13:25] LABS: Hematocrit 24.5 % (37.0-47.0); Hemoglobin 7.3 g/dL (12.0-16.0)
[2024-02-27 13:39] LABS: APTT 68.9 Sec (23.4-35.0)
--- NOTE | 2024-02-27 15:47 | CON.GI ---
Addendum entered and electronically signed by Mary Salinas MD 02/27/24 20:32:
I saw and examined the patient.
The SHOP DIRECTOR or PA's note was reviewed and I agree with the note.
Comment: 84-year-old female with history of hypertension, high cholesterol, paroxysmal A-fib, history of hepatitis C previously treated, history of chronic anemia follows up with hematology at [facility] presenting with chest pain and elevated
troponin, during the hospital stay noted to have anemia-hemoglobin of 8.4 on admission now 7.3. Microcytic. as per records it was 13.2 in September but patient does report history of chronic anemia and has had IV iron infusions in the past. No GI
symptoms at this time, history of stomach ulcers in 2019, reports having colonoscopy in 2018, unclear if she had any polyps. No NSAID use.
Rectal exam shows hard stool in the rectum and trace heme positive.
-Microcytic anemia with trace heme positive stool without any overt bleeding
History of chronic anemia needing IV iron infusions
Patient with non-ST elevation UT with plan for cardiac catheterization.
Discussed with Dr. Rodriguez, given history of previous peptic ulcer disease, will do upper endoscopy to evaluate this anemia with heme positive stool, will get records from [facility] regarding previous tests.
Start PPI as patient is on aspirin and prednisone.
-Noted hard stool in the rectum
Will give Dulcolax suppository
Start MiraLAX daily
Will follow
Original Note:
Consultation
-
Date/Time Consultation Requested: 02/27/24 1000
Date/Time Consultation Performed: 02/27/24 1530
Requesting Provider: Vipul Keenan DO
Performing Provider: KRISTYN Abreu, Mary Salinas MD
Reason for Consultation: anemia
Medical History
Chief Complaint / HPI
History of Present Illness:
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 with admission 02/25 with chest pain. On
admission noted with peak troponin up to 2.070 with hbg initially 8.4 then drop to 7.3 and 13.2 in September. In review with patient she admits to chronic anemia for years with hematology follow. She recently switched outreach manager as her MD retired
but recalls iron infusion as of 3 months ago but per records may have been 2022. She initially denies prior EGD or colon but later admits to completing years ago. Per cardiology records capsule 2013 normal,. colon 2018 without finding and EGD 2019
with cratered ulcers.
Pt admits to chronic constipation but denies dysphagia, GERD, nausea, vomiting , abdominal pain, diarrhea, blood or black in stools. No anticoagulation or NSAID use prior to admission. Us done on admission with mobile GS in gallbladder, mild
GB wall thickening and edema no distention, acute cholecystitis unlikely, CBD 5 mm.
Past Medical History
Past Medical History: Arrhythmias (PAF), CAD, HTN, Hypercholesterolemia, Renal Failure (CKD) and Other (CKD, chronic anemia, PUD on EGD 2019, syncope with loop recorder, urinary incontinence since infancy with SP st cath, HH, gallstones, hep C with
prior treatment )
Past Surgical History: Cardiac (prior stent, loop recorder)
Social History
Tobacco: Non-Smoker
Alcohol: Occasional
Drug: None
Living: Alone
Employment: Retired
Family History
Family History: Other (no family hx GI issues )
Allergies / Home Medications
Allergy/AdvReac Type Severity Reaction Status Date / Time
NKA - No Known Allergies Allergy Unknown Uncoded 02/26/24 06:23
�Medication �Instructions �Recorded
acetaminophen 500 mg tablet 1,000 mg PO BID pain/fever 02/26/24
amlodipine 10 mg tablet 10 mg PO HS Blood Pressure 02/26/24
aspirin 81 mg chewable tablet 81 mg PO DAILY Blood Clot 02/26/24
Prevention/Tx
cranberry fruit concentrate 250 mg 500 mg PO DAILY Supplement 02/26/24
chewable tablet (Azo Cranberry)
cyanocobalamin (vitamin B-12) 500 500 mcg PO DAILY Supplement 02/26/24
mcg tablet
duloxetine 30 mg capsule,delayed 30 mg PO DAILY Depression 02/26/24
release
famotidine 40 mg tablet 40 mg PO DAILY Gastrointestinal 02/26/24
Issue
guaifenesin 600 mg tablet, 600 mg PO DAILY Cough 02/26/24
extended release 12 hr (Mucus
Relief ER)
isosorbide dinitrate 30 mg tablet 30 mg PO DAILY Blood Pressure 02/26/24
levothyroxine 112 mcg tablet 112 mcg PO MOTUWETHFRSA Thyroid 02/26/24
levothyroxine 112 mcg tablet 168 mcg PO LITTLE Thyroid 02/26/24
metoprolol tartrate 25 mg tablet 37.5 mg PO BID Blood Pressure 02/26/24
pravastatin 20 mg tablet 20 mg PO HS High Cholesterol 02/26/24
prednisone 2.5 mg tablet 7.5 mg PO DAILY Anti-Inflammatory 02/26/24
quetiapine 25 mg tablet 25 mg PO HS Sleep 02/26/24
Review of Systems
-
History Source: Patient
Constitutional: Reports No Symptoms
EENT: Reports No Symptoms
Respiratory: Reports No Symptoms
Cardiac: Reports Chest Pain
Abdomen/GI: Reports Constipated
: Reports Other (chronic SP st cath )
Musculoskeletal: Reports No Symptoms
Skin: Reports No Symptoms
Neurological: Reports Weakness
Endocrine: Reports No Symptoms
Hematologic/Lymphatic: Reports No Symptoms
Vital Signs
Temp Pulse Resp BP Pulse Ox
97.7 F 56 16 89/49 99
02/27/24 15:36 02/27/24 14:01 02/27/24 15:36 02/27/24 14:01 02/27/24 15:36
Physical Exam
Exam
General: Well Developed, Well Nourished and No Apparent Distress
HEENT: Normocephalic and Anicteric
Respiratory: Clear
Cardiac: Murmur and Other (bradicardia )
GI: Soft and Non Distended
Rectal: Brown (per Dr. Salinas trace heme + hard stool in rectal vault )
Musculoskeletal: No Clubbing and No Cyanosis
Skin: Warm and Dry
Neuro: Awake, Alert, AO x 3 and Other (hard of hearing )
Psych: Calm
Results
WBC 6.3 10^3/uL (4.8-10.8) 02/27/24 05:03
Hgb 7.3 g/dL (12.0-16.0) L 02/27/24 13:16
Hct 24.5 % (37.0-47.0) L 02/27/24 13:16
MCV 71.4 fL (81.0-99.0) L 02/27/24 05:03
Plt Count 368 10^3/uL (130-400) 02/27/24 05:03
Absolute Neuts (auto) 4.2 10^3/uL (1.4-6.5) 02/27/24 05:03
APTT 68.9 Sec (23.4-35.0) H 02/27/24 13:16
Sodium 142 mmol/L (135-145) 02/27/24 05:03
Potassium 4.1 mmol/L (3.5-5.1) 02/27/24 05:03
Chloride 111 mmol/L (98-107) H 02/27/24 05:03
Carbon Dioxide 21 mmol/L (22-30) L 02/27/24 05:03
BUN 33 mg/dl (7-17) H 02/27/24 05:03
Creatinine 1.2 mg/dL (0.6-1.0) H 02/27/24 05:03
Calcium 9.3 mg/dl (8.4-10.2) 02/27/24 05:03
Total Bilirubin 0.8 mg/dl (0.2-1.3) 02/26/24 06:34
AST 22 U/L (14-36) 02/26/24 06:34
ALT 16 U/L (0-35) 02/26/24 06:34
Alkaline Phosphatase 72 U/L (38-126) 02/26/24 06:34
Lipase 260 U/L (23-300) 02/26/24 06:34
Diagnostic Image Results:
02/26/24 US abdomen
1. Mobile gallstone within the gallbladder, measuring 1.2 cm in diameter.
2. Mild gallbladder wall thickening and mild gallbladder wall edema. Negative sonographic Anderson's sign, and the gallbladder is not significantly distended. Acute cholecystitis is considered unlikely.
3. Common bile duct measures 5 mm in diameter, within normal limits.
Prior GI Procedures:
Per cardiology records capsule 2013 normal,. colon 2019 without finding and EGD 2019 with cratered ulcers.
Assessment / Plan
-
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 with admission 02/25 with chest pain. On
admission noted with peak troponin up to 2.070 with hbg initially 8.4 then drop to 7.3 and 13.2 in September. In review with patient she admits to chronic anemia for years with hematology follow. She recently switched outreach manager as her MD retired
but recalls iron infusion as of 3 months ago but per records may have been 2022. She initially denies prior EGD or colon but later admits to completing years ago. Per cardiology records capsule 2013 normal,. colon 2019 without finding and EGD 2019
with cratered ulcers. Pt also noted with constipation, gallstone with mild GB thickening on US denies NSAID or Anticoagulation prior to admission.
-anemia acute on chronic-trace heme + in exam
-chest pain on admission with NSTEMI with increase troponin on admission
-hx PUD and pt recall ? HH in past
-constipation
other med problems:
-chronic SP with st cath
-CAD
-P-afib no anticoagulation
-syncope with loop recorder
-HTN
-hyperlipidemia
-CKD
hep C with prior treatment
-gallstones
PLAN:
Etiology of anemia related to underlying GI etiology(PUD, ectasia, vs other ), CKD vs other
plan for EGD in AM
ok for cholesterol lowering this PM then NPO in AM
Dr. Salinas reviewed with Dr. Rodriguez ok to proceed
trend hbg transfuse as needed
cont Pepcid q 48hours -- EGD to assess if PPI needed
add miralax, senna and dulcolax now with constipation
cont work up per cards for elevated trop and chest pain
OP follow up with [facility] hematology
-
-
Thank you for consultation and allowing me to participate in the patient's care. Please call the laborer demolition GI physician during the after hours with any questions or concerns.
[2024-02-27] MEDS: DULCOLAX RECTAL (18:32)
[2024-02-27] MEDS: MIRALAX 17 GRAMS PO (18:32)
--- NOTE | 2024-02-27 18:36 | PTCARENOTE ---
This RN spoke w/Blood Bank & then pt & pt's daughter, Maureen to obtain addtl info requested by blood bank to attempt to match antibodies for pt's blood. Dr Keenan notified of the delay administering ordered blood due to pt's numerous antibodies.
Spoke w/pt about ordered Ducolax suppository & pt asking to wait until after she eats dinner. Pt agreed to take ordered Miralax at this time. Pt reports no need to straight cath through her suprapubic access at this time. She will advise staff when
she needs assistance. Plan of care ongoing.
[2024-02-27] MEDS: TOPROL XL 25 MG PO (20:38)
[2024-02-27] MEDS: DULCOLAX 10 MG RECTAL (20:39)
[2024-02-27] MEDS: PROTONIX 40 MG PO (22:29)
[2024-02-27] MEDS: SENOKOT 17.2 MG PO (22:29)
[2024-02-27] MEDS: PRAVACHOL 20 MG PO (22:29)
[2024-02-27] MEDS: SEROQUEL 25 MG PO (22:29)
[2024-02-28] VITALS (20 sets, daily range): BP systolic 85–131; BP diastolic 44–78
--- NOTE | 2024-02-28 03:42 | PTCARENOTE ---
Pt NSR on monitor. VSS. 1 URBC administered. No s/s of adverse reaction noted during or post transfusion. Pt NPO for EGD scheduled today.
[2024-02-28 04:39] LABS: % Basophils 0.6 % (0-2); % Eosinophils 1.5 % (0-6); % Immature Granulocytes 0.4 % (0-0.5); % Neutrophils 80.5 % (42.2-75.2); Absolute Basophils 0.1 10^3/uL (0-0.2); Absolute Eosinophils 0.2 10^3/uL (0-0.7); Absolute Immature Granulocytes 0.1 10^3/uL (0-0.05); Absolute Lymphocytes 1.2 10^3/uL (1.2-3.4); Absolute Neutrophils 10.5 10^3/uL (1.4-6.5); Hematocrit 30.8 % (37.0-47.0); Hemoglobin 9.2 g/dL (12.0-16.0); Mean Corp Hgb Conc. 29.9 g/dL (33.0-37.0); Mean Corpuscular Hgb 22.6 pg (27.0-31.0); Mean Corpuscular Volume 75.7 fL (81.0-99.0); Mean Platelet Volume 10.3 fL (7.4-10.4); Nucleated Red Blood Cells % 0 %; Platelet Count 371 10^3/uL (130-400); Red Blood Cell Count 4.07 10^6/uL (4.20-5.40); Red Cell Dist. Width 17.2 % (11.5-14.5)
[2024-02-28 05:00] LABS: Blood Urea Nitrogen 39 mg/dl (7-17); Calcium 9.6 mg/dl (8.4-10.2); Carbon Dioxide 18 mmol/L (22-30); Chloride 108 mmol/L (98-107); Estimated Creatinine Clearance 22 ml/min; Glucose 119 mg/dl (70-99); Magnesium 2.6 mg/dl (1.6-2.3); Potassium 4.2 mmol/L (3.5-5.1); Sodium 141 mmol/L (135-145); eGFR 31.21
[2024-02-28] MEDS: SYNTHROID 112 MCG PO (05:05)
--- NOTE | 2024-02-28 07:43 | W.PN.HOSP.TC ---
Today's Communication/Plan
-
EGD today
Monitor renal function
Monitor hemoglobin
Assessment / Plan
Assessment / Plan
Gen-AAOx3, NAD, hard of hearing
HEENT-NC, AT, anicteric, clear oral mm
Neck-supple
CV-reg, no M, +S1/S2
Lungs-clear B/L
Abd-soft, NT, ND
Ext-no edema
Musculoskeletal-no cyanosis, clubbing
Skin-warm and dry
Neuro-grossly non-focal
Psych-calm, cooperative
NSTEMI - hemodynamically stable. IV heparin discontinued due to heme positive stools, acute anemia. Cardiac catheterization on hold given relatively acute anemia, will need further workup. Discussed with cardiology.
Troponin trending down now.
Presentation with epigastric abdominal pain. Abdominal ultrasound shows a mobile gallstone without cholecystitis.
Acute anemia -microcytic. Known history of iron deficiency, history of iron transfusions in the past. Records reviewed. Hemoglobin was 13 in September. Patient denies melena or hematochezia. Last colonoscopy, EGD was 2018 which did not reveal any
bleeding source. Apparently had a capsule endoscopy 2013 that was unrevealing.
Hemoglobin on 02/26 was 7.3, transfused 1 unit of blood overnight, 9.2 this morning.
Labs confirm iron deficiency anemia.
Etiology of anemia suspected to be acute on chronic GI blood loss anemia. Await EGD today. GI consulted. Currently NPO. Daily Protonix started.
SHIRLEY on CKD 3b - Creatinine was 1.7 in May of this year, 1.2 on 02/26, 1.6 today. Suspect SHIRLEY due to hypotension, blood pressure now improved.
CAD -history of 2 stents.
Atrial fibrillation -unknown type.
Essential hypertension -hypotensive 02/26 with bradycardia, suspect medication effect due to Toprol XL and amlodipine. Amlodipine discontinued, Toprol-XL dose cut in half. Heart rate and blood pressure improved.
Hyperlipidemia -on pravastatin.
Hypothyroidism -continue levothyroxine.
Rheumatoid arthritis
Hearing impairment -uses hearing aids but they are currently at home.
IBS
Full code
Anticipated Discharge: > 48 hours
Subjective/Interval History
-
Date of Service: February 28, 2024
Patient seen and examined. Mild chest pain last night, feels fine right now. No complaints.
Objective Data
-
Labs:
Laboratory Results
02/28/24
04:06
WBC 13.0 H
Hgb 9.2 L D
Hct 30.8 L
Plt Count 371
Sodium 141
Potassium 4.2
Chloride 108 H
Carbon Dioxide 18 L
BUN 39 H
Creatinine 1.6 H
Glucose 119 H
Calcium 9.6
Vital Signs:
Vital Signs
Temp Pulse Resp BP Pulse Ox
97.9 F 70 16 119/55 98
02/28/24 06:59 02/28/24 04:30 02/28/24 06:59 02/28/24 03:52 02/28/24 06:59
I&O
02/27/24 02/28/24 02/29/24
06:59 06:59 06:59
Intake Total 240 / 240 940 / 940
Output Total 1450 / 1450 950 / 950
Balance -1210 / -1210 -10 / -10
Review of Systems
-
History Source: Patient
All other systems: Reviewed and negative
--- NOTE | 2024-02-28 07:56 | W.PN.CARDCBS ---
Addendum entered and electronically signed by Dennis Michelle MD 02/28/24 10:44:
84-year-old woman with chest pain and troponin of 2.07. Now back from EGD. She had Cheikh ulcers and hiatal hernia. No complaints of chest pain
PMH: History of bare-metal stent to diagonal and 2017, PAF, peptic ulcer disease requiring transfusion, anemia, now with hemoglobin as low as 7.3 and troponin of 2.07, not anticoagulated, hypertension, hep C, hypercholesterolemia, CKD, remote stroke
PSH/SH/FH: Reviewed
Allergies, outpatient
meds: Reviewed
ROS reviewed
120/70, pulse 66, head neck exam unremarkable, lungs are clear, regular rate and rhythm with soft murmur, JVD okay, abdomen benign, extremities without clubbing cyanosis or edema, neuro nonfocal
Hemoglobin 9.2, BUN/creatinine 39 and 1.6, potassium 4.2, creatinine had been 1.3
Echo: EF 55-60%, mild aortic regurgitation, normal pulmonary pressure
ECG yesterday sinus bradycardia, nonspecific ST and T wave changes, first-degree AV block
Plan:
She appears stable at the moment from a cardiac standpoint.
I suspect that her troponin elevation is not related to ACS but rather than a flat reflection of demand ischemia from anemia in the setting of known CAD.
At present, there is not urgent need for cardiac catheterization.
Will discuss with GI as to whether or not patient would benefit from treatment for Cheikh ulcers and conservative management for CAD at the present time, with consideration of elective catheterization as outpatient.
I would be comfortable with this strategy if patient remains stable over the next 24 hours with ambulation, etc. If she shows signs of recurrent ischemia, will proceed with catheterization otherwise reassess as outpatient.
Original Note:
Today's Communication / Plan
-
EGD today
OK to shower
Cont aspirin, Toprol XL and atorvastatin
Cath this admission pending EGD and Cre
Impression / Plan
-
PCP: Dr. Ridley at [facility]
Heme: Dr. Duncan Singer Hematology at [place]
Cardiology: Dr. Rossi,
Impression:
Admitted with chest pain 02/26/24
NSTEMI, peak Troponin 2.07
CAD
BMS x2 to Diag-2016
Chronic iron deficiency anemia
h/o GIB with cratered ulcer and transfusions at [facility] 2019
SHIRLEY on CKD 3b
Paroxysmal Afib
Not chronically anticoagulated due to h/o GIB and patient choice
Hypertension
Hep C, acquired from transfusion, treated
FMR
Echo 05/2021: [facility] study, Normal EF, mild AI
Echo 02/27/24: EF 55 to 60%, mild concentric LVH, mild aortic regurgitation, mild TR
Plan:
-Hgb dropped as low as 7.3 on 02/27/24 and patient was given 1 unit of PRBCs, of note patient has antibodies and unit of blood was difficult to locate.
-Patient has a h/o iron def anemia and a h/o GIB due to gastric ulcer in 2019. Heparin gtt was stopped with dropping Hgb and GI evaluated patient. Plan is for EGD 02/28/24.
-Patient came to [facility] 02/26/24 with chest pain and Troponin peaked at 2.07. Managed as a NSTEMI.
-Patient with epigastric and back pain on admission which has not recurred. Overnight left breast pain reported that lasted for seconds 02/28/24.
-Outpatient dose of aspirin 81 mg daily continued
-Outpatient dose of Lopressor changed to Toprol XL 50 mg BID
-LDL 58, outpatient dose of pravastatin changed to atorvastatin 20 mg daily
-Patient with h/o BMS x2 to Diag-1 at [facility] in 2016. Dr. Rossi's office is working on obtaining cath report.
-Plan is for cardiac cath pending EGD and Cre
-Patient is chronically on Isordil 30 mg daily which has been continued
-Remote h/o syncope and had loop recorder placed, but it reached end of battery life and was not replaced. Loop previously detected paroxysmal Afib and patient has a h/o CVA, but was not on OAC due to h/o iron def anemia and GIB.
-Outpatient dose of amlodipine 10 mg daily has been continued
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 Cre up to 1.6 on 02/28/24.
HPI: 84-year-old woman with known history of coronary artery disease, atrial fibrillation, hypertension, dyslipidemia, chronic kidney disease, chronic anemia presented to [facility] emergency department via emergency medical services for
evaluation of chest pain. She notes that her chest pain started last night at around 10:30 PM after she had something to eat. She describes this as an intense pain at the center of her chest which radiated across the chest to her right shoulder
and also into her back. Pain persisted through the night and was unable to sleep well. She called emergency medical services this morning due to continued symptoms. On route she received aspirin as well as nitroglycerin leading to complete
resolution of her symptoms. She is asymptomatic on arrival to the emergency department. She reports that for the preceding 6 months she has had new dyspnea on exertion.
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
Subjective
Date of Service: February 28, 2024
She wants to take a shower
Objective
Labs:
02/28/24 04:06
02/28/24 04:06
Labs
Hgb 9.2 g/dL (12.0-16.0) L D 02/28/24 04:06
Hct 30.8 % (37.0-47.0) L 02/28/24 04:06
Plt Count 371 10^3/uL (130-400) 02/28/24 04:06
APTT 68.9 Sec (23.4-35.0) H 02/27/24 13:16
Sodium 141 mmol/L (135-145) 02/28/24 04:06
Potassium 4.2 mmol/L (3.5-5.1) 02/28/24 04:06
BUN 39 mg/dl (7-17) H 02/28/24 04:06
Creatinine 1.6 mg/dL (0.6-1.0) H 02/28/24 04:06
Glucose 119 mg/dl (70-99) H 02/28/24 04:06
Troponins
02/26/24 02/26/24 02/26/24
06:34 12:25 12:48
Troponin I 0.082 H* 1.600 H* D Cancelled
02/26/24 02/26/24 02/26/24
13:00 16:28 22:36
Troponin I Cancelled 2.070 H* D 1.620 H*
02/27/24
05:03
Troponin I 1.260 H*
Vital Signs and I&O:
Vital Signs
Temp Pulse Resp BP Pulse Ox
97.9 F 66 16 120/70 98
02/28/24 06:59 02/28/24 07:45 02/28/24 06:59 02/28/24 06:58 02/28/24 06:59
Vital Signs
Temp Pulse Resp BP Pulse Ox
97.9 F 66 16 120/70 98
02/28/24 06:59 02/28/24 07:45 02/28/24 06:59 02/28/24 06:58 02/28/24 06:59
Intake & Output
02/26/24 02/27/24 02/28/24 02/29/24
06:59 06:59 06:59 06:59
Intake Total 240 / 240 940 / 940
Output Total 1450 / 1450 950 / 950
Balance -1210 / -1210 -10 / -10
Physical Exam
Physical Exam
GEN: AAOx3
HEENT: EOMI, MMM
LUNGS: No audible wheeze
CV: SR on tele
ABD: ND
EXT: No edema B/L
NEURO: Gross non-focal
SKIN: No rash
--- NOTE | 2024-02-28 08:49 | PTCARENOTE ---
Assumed care of pt from prev nsg shift; Pt AAOx3, drowsy but easily arousable. Pt's VS stable w/HR in the 60's & BP this AM 120/70. Pt is SB/SR w/1st deg AV block on telemetry monitoring. Pt w/no c/o CP or SOB this AM. Assisted pt w/self cath for
650 mLs of cloudy, yellow urine w/mod amt of sediment. Redressed urostomy w/sterile gauze. Plan of care discussed w/pt & pt w/no addtl needs at this time.
--- NOTE | 2024-02-28 08:53 | PTCARENOTE ---
Report given to Liliam in the in pt GI lab & pt taken via stretcher to GI lab for EGD this AM. Pt's AM meds held until pt returns from procedure.
--- NOTE | 2024-02-28 09:40 | PTCARENOTE ---
Rec'd report from Andria in the PACU; Rec'd pt back from PACU AAOX3 w/no c/o pain. Pt assisted back to bed & repositioned for comfort. Call rosales within reach.
[2024-02-28] MEDS: SORBITRATE 30 MG PO (12:48)
[2024-02-28] MEDS: PROTONIX 40 MG PO ×2 (12:48→20:04)
[2024-02-28] MEDS: CARAFATE PO (12:48)
[2024-02-28] MEDS: CYMBALTA DELAYED RELEASE 30 MG PO (12:49)
[2024-02-28] MEDS: DELTASONE 7.5 MG PO (12:49)
[2024-02-28] MEDS: MIRALAX 17 GRAMS PO (12:49)
[2024-02-28] MEDS: LOW STRENGTH ASPIRIN 81 MG PO (12:49)
[2024-02-28] MEDS: MUCINEX 600 MG PO (12:49)
[2024-02-28] MEDS: TYLENOL 1000 MG PO ×2 (12:49→20:04)
[2024-02-28] MEDS: TOPROL XL 25 MG PO ×2 (12:49→20:04)
[2024-02-28] MEDS: PEPCID 20 MG PO (12:54)
[2024-02-28] MEDS: VITAMIN B-12 500 MCG PO (12:55)
[2024-02-28] MEDS: PROTONIX PO (12:58)
--- NOTE | 2024-02-28 13:43 | CM ---
Reviewed chart. Met with Mrs. Monreal to review discharge plans. She states she is feeling well and still ongoing with testing. Prior to admission she resides alone in an apartment at [facility]. She has been there for five
years. Prior to admission she ambulates with a walker and independent with adls. She has had [facility] in the past. Will need to see her current functional level to see if she will have any skilled needs. Medical work-up in progress. The
discharge plan is to return home with [facility] if indicated when medically stable..
[2024-02-28] MEDS: CARAFATE 1 GRAM PO ×2 (16:27→21:35)
[2024-02-28] MEDS: PRAVACHOL 20 MG PO (21:35)
[2024-02-28] MEDS: SEROQUEL 25 MG PO (21:36)
[2024-02-28] MEDS: SENOKOT 17.2 MG PO (21:36)
[2024-02-29] VITALS (24 sets, daily range): BP systolic 95–177; BP diastolic 60–146; PULSE 72–75; O2SAT 97–98
[2024-02-29] MEDS: PROTONIX IV 40 MG IV (00:38)
[2024-02-29] MEDS: NSS (PRESERVATIVE FREE) 10 ML IV (00:38)
--- NOTE | 2024-02-29 00:44 | W.PN.UPDATE ---
Update Note
Progress Note Update
Reported by the nursing staff that the patient had chest pain that radiating to the RT arm. bp 177/99, hr 77
On assessment, patient is Alert and oriented x3 she looks comfortable with NAD, complained of pain sternum area, non radiating and stated ' RT arm feels numb but related to my arthritis'
-initially she mentioned that she her pain 10/10 of pain scale in the sternum area, Denied SOB.
-No Wheezing or crackle noted in chest exam.
-Chest x-ray, stat lab ordered.
-EKG with NSR.
-Patient received one nitro, pain is down to 8/10 per patient. Patient is belching during the exam, will give one time dose of Protonix as the pain could be related to GERD/gastritis.
-Per patient, after Protonix Pain is down to 3/10 of pain scale now in the chest.
-NAD noted during the exam and the patient asked me to give her purse and she took out her comb started to brush her hair, and stated ' is it will be weird if I ask to wear lip stick now?'
- Lab result unremarkable (Troponin now is 0.341 previously 1.260), chest x-ray result is pending.
--- NOTE | 2024-02-29 01:02 | PTCARENOTE ---
Addendum entered by Maggie Waddell RN 02/29/24 02:55:
0104 2.08 pause pt asleep at that time
Original Note:
00:22 Pt called and C/o CP 10 pt stated 'that big pill (she took carafate earlier this shift) stuck in my chest'. C/O pain in mid chest, radiating to back ' across bra line' and rt arm. BP 177/99 HR 77. Pt stated 'Rt arm feels numb, but I have
arthritis' EKG done with no changes. EXPORT AGENT made aware and STAT nitro ordered.
00:27 after one SL nitro given BP 115/69 HR 73. Pain down to 8/10. Pt stated that pain is improving. During this episode Pt asked for her purse because she wanted to brush her hair. Pt was using her both arms to brush hair without any s/s of
discomfort.
Protonix IV given, STAT labs and CXray done. Pain down to 3/10 in the chest and 5/10 in the back, BP 127/74
[2024-02-29 01:04] LABS: % Basophils 0.4 % (0-2); % Eosinophils 0.4 % (0-6); % Immature Granulocytes 0.4 % (0-0.5); % Lymphocytes 8.2 % (20.5-51.1); % Neutrophils 83.6 % (42.2-75.2); Absolute Lymphocytes 0.8 10^3/uL (1.2-3.4); Absolute Monocytes 0.7 10^3/uL (0.1-0.6); Hematocrit 29.4 % (37.0-47.0); Mean Corp Hgb Conc. 30.6 g/dL (33.0-37.0); Mean Corpuscular Hgb 22.1 pg (27.0-31.0); Mean Corpuscular Volume 72.1 fL (81.0-99.0); Nucleated Red Blood Cells % 0 %; Platelet Count 376 10^3/uL (130-400); Red Blood Cell Count 4.08 10^6/uL (4.20-5.40); White Blood Cell Count 9.6 10^3/uL (4.8-10.8)
[2024-02-29 01:21] LABS: Blood Urea Nitrogen 39 mg/dl (7-17); Calcium 9.6 mg/dl (8.4-10.2); Carbon Dioxide 17 mmol/L (22-30); Chloride 108 mmol/L (98-107); Estimated Creatinine Clearance 24 ml/min; Glucose 130 mg/dl (70-99); Magnesium 2.5 mg/dl (1.6-2.3); Potassium 4.6 mmol/L (3.5-5.1); Sodium 137 mmol/L (135-145); eGFR 33.73
[2024-02-29 01:38] LABS: Troponin I 0.341 ng/ml
[2024-02-29 04:29] LABS: % Basophils 0.4 % (0-2); % Eosinophils 0.9 % (0-6); % Immature Granulocytes 0.7 % (0-0.5); % Lymphocytes 10.5 % (20.5-51.1); % Monocytes 8.5 % (1.7-9.3); Absolute Eosinophils 0.1 10^3/uL (0-0.7); Absolute Immature Granulocytes 0.1 10^3/uL (0-0.05); Absolute Lymphocytes 0.9 10^3/uL (1.2-3.4); Absolute Monocytes 0.8 10^3/uL (0.1-0.6); Absolute Neutrophils 7.1 10^3/uL (1.4-6.5); Hemoglobin 8.5 g/dL (12.0-16.0); Mean Corp Hgb Conc. 30.4 g/dL (33.0-37.0); Mean Corpuscular Volume 72.5 fL (81.0-99.0); Mean Platelet Volume 10.6 fL (7.4-10.4); Nucleated Red Blood Cells % 0 %; Platelet Count 368 10^3/uL (130-400); Red Blood Cell Count 3.86 10^6/uL (4.20-5.40); Red Cell Dist. Width 17.1 % (11.5-14.5); White Blood Cell Count 8.9 10^3/uL (4.8-10.8)
[2024-02-29 04:58] LABS: Blood Urea Nitrogen 38 mg/dl (7-17); Calcium 9.5 mg/dl (8.4-10.2); Carbon Dioxide 19 mmol/L (22-30); Chloride 111 mmol/L (98-107); Estimated Creatinine Clearance 24 ml/min; Glucose 94 mg/dl (70-99); Magnesium 2.6 mg/dl (1.6-2.3); Potassium 4.4 mmol/L (3.5-5.1); Sodium 141 mmol/L (135-145); eGFR 33.73
[2024-02-29] MEDS: SYNTHROID 112 MCG PO (05:12)
[2024-02-29] MEDS: TYLENOL 1000 MG PO ×2 (05:12→20:21)
[2024-02-29] MEDS: TUMS CHEWABLE TABLET 200 MG PO (05:13)
[2024-02-29] MEDS: CHLORASEPTIC/SORE THROAT SPRAY 1 SPRAY PO (05:36)
[2024-02-29] MEDS: MORPHINE SULFATE 0.5 MG IV (05:38)
--- NOTE | 2024-02-29 07:41 | PTCARENOTE ---
4:45 Pt C/O burning sensation in her throat, chest, back, and rt arm pain BP 169/81. DOT ETCHER APPRENTICE made aware. EKG done. Tylenol x 1 dose given but not effective. Morphine IV x1 ordered.
[2024-02-29] MEDS: MIRALAX 17 GRAMS PO (08:02)
[2024-02-29] MEDS: LIDOCAINE 4% PATCH 1 PATCH TOPICAL (08:02)
[2024-02-29] MEDS: CARAFATE 1 GRAM PO ×4 (08:02→22:33)
[2024-02-29] MEDS: PROTONIX 40 MG PO ×2 (08:04→20:21)
[2024-02-29] MEDS: MUCINEX 600 MG PO (08:04)
[2024-02-29] MEDS: VITAMIN B-12 500 MCG PO (08:04)
[2024-02-29] MEDS: SORBITRATE 30 MG PO (08:04)
[2024-02-29] MEDS: CYMBALTA DELAYED RELEASE 30 MG PO (08:04)
[2024-02-29] MEDS: FLUSH (NSS) 1 FLUSH IV (08:05)
[2024-02-29] MEDS: LOW STRENGTH ASPIRIN 81 MG PO (08:05)
[2024-02-29] MEDS: TOPROL XL 25 MG PO ×2 (08:05→20:21)
[2024-02-29] MEDS: DELTASONE 7.5 MG PO (08:06)
[2024-02-29] MEDS: TYLENOL PO (08:07)
[2024-02-29 08:58] LABS: Troponin I 0.297 ng/ml
--- NOTE | 2024-02-29 09:03 | W.PN.CARDCBS ---
Addendum entered and electronically signed by Layo Ruiz MD 02/29/24 16:39:
I saw and examined the patient.
The Senior Engineer's note was reviewed and I agree with the note.
Comment: Briefly, 84-year-old woman past medical history of coronary artery disease presenting with chest discomfort found to have elevated troponin which peaked at 2.07
Of note admission ECG was not overtly ischemic and transthoracic echocardiogram with normal regional wall motion
Medical management of NSTEMI was initiated with aspirin, high intensity statin, beta-rachid and heparin drip
Unfortunately hemoglobin down trended to 7.3
EGD was performed which revealed ulceration and gastritis as well as large hiatal hernia
This morning patient reported epigastric discomfort which came on with eating an Ethiopian muffin
ECG this morning with nonspecific ST/T changes, but similar to prior tracings
Troponin continues to downtrend
Discussed the risks and benefits of cardiac catheterization with the patient - given anemia and GI pathology explained that we could consider treating empirically with medical therapy with a plan for ischemic workup as an outpatient if her Hgb
remains stable on DAPT. She is in agreement with conservative approach attempting medical management first.
Start Plavix in addition to ASA and high intensity statin
Cont home BB/CCB/nitrate as anti-anginals and monitor for recurrence of symptoms
Original Note:
Today's Communication / Plan
-
Start Plavix 75 mg daily
Cont aspirin 81 mg daily
Restarted outpatient dose of amlodipine 10 mg daily
New to Toprol XL
Cont outpatient dose of Isordil
Consulted cardiac rehab
Troponin trending down despite chest pain last night
Impression / Plan
-
PCP: Dr. Ridley at [facility]
Heme: Dr. Duncan Singer Hematology at [place]
Cardiology: Dr. Rossi,
Impression:
Admitted with chest pain 02/26/24
NSTEMI, peak Troponin 2.07
CAD
BMS x2 to Diag-2016
Chronic iron deficiency anemia
h/o GIB with cratered ulcer and transfusions at [facility] 2019
SHIRLEY on CKD 3b
Paroxysmal Afib
Not chronically anticoagulated due to h/o GIB and patient choice
Hypertension
Hep C, acquired from transfusion, treated
FMR
Echo 05/2021: [facility] study, Normal EF, mild AI
Echo 02/27/24: EF 55 to 60%, mild concentric LVH, mild aortic regurgitation, mild TR
Plan:
-Chest pain overnight described as being similar to pain on admission. Patient reports she had some relief with NTG SL x1 and then additional relief with Chloraseptic spray. Pain has not recurred 02/29/24. Troponin trending down on multiple
rechecks. ECG without acute ischemic change.
-Echo without WMA this admission.
-Will add back outpatient dose of amlodipine 10 mg daily
-Outpatient dose of Isordil 30 mg daily has been continued
-Outpatient dose of Lopressor changed to Toprol XL 50 mg BID
-Hgb drifting down to 8.5 on 02/29/24. Will recheck H&H in the afternoon.
-Patient with multiple superficial Cheikh ulcers/ erosions, but no active bleeding or stigmata and large hiatal hernia on EGD 02/28/24. GI has cleared patient to proceed with any necessary cardiac procedures.
-Will attempt to manage elevated Troponin medically for now. Add Plavix and follow labs. If patient can tolerate DAPT and has recurrent pain then could consider a cath in the future when she follows up with her primary dramatic director.
-Outpatient dose of aspirin 81 mg daily continued
-Patient has a h/o iron def anemia and a h/o GIB due to gastric ulcer in 2019. Heparin gtt was stopped with dropping Hgb. 1 unit PRBCs transfused this admission.
-LDL 58, outpatient dose of pravastatin changed to atorvastatin 20 mg daily
-Patient with h/o BMS x2 to Diag-1 at [facility] in 2016.
-Cardiac rehab consulted
-Remote h/o syncope and had loop recorder placed, but it reached end of battery life and was not replaced. Loop previously detected paroxysmal Afib and patient has a h/o CVA, but was not on OAC due to h/o iron def anemia and GIB.
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
HPI: 84-year-old woman with known history of coronary artery disease, atrial fibrillation, hypertension, dyslipidemia, chronic kidney disease, chronic anemia presented to [facility] emergency department via emergency medical services for
evaluation of chest pain. She notes that her chest pain started last night at around 10:30 PM after she had something to eat. She describes this as an intense pain at the center of her chest which radiated across the chest to her right shoulder
and also into her back. Pain persisted through the night and was unable to sleep well. She called emergency medical services this morning due to continued symptoms. On route she received aspirin as well as nitroglycerin leading to complete
resolution of her symptoms. She is asymptomatic on arrival to the emergency department. She reports that for the preceding 6 months she has had new dyspnea on exertion.
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
Subjective
Date of Service: February 29, 2024
Chest pain last night, better with Nitro and then completely relieved after Chloraseptic spray
Objective
Labs:
02/29/24 03:59
02/29/24 03:59
Labs
Hgb 8.5 g/dL (12.0-16.0) L 02/29/24 03:59
Hct 28.0 % (37.0-47.0) L 02/29/24 03:59
Plt Count 368 10^3/uL (130-400) 02/29/24 03:59
APTT 68.9 Sec (23.4-35.0) H 02/27/24 13:16
Sodium 141 mmol/L (135-145) 02/29/24 03:59
Potassium 4.4 mmol/L (3.5-5.1) 02/29/24 03:59
BUN 38 mg/dl (7-17) H 02/29/24 03:59
Creatinine 1.5 mg/dL (0.6-1.0) H 02/29/24 03:59
Glucose 94 mg/dl (70-99) 02/29/24 03:59
Troponins
02/26/24 02/26/24 02/26/24
12:25 12:48 13:00
Troponin I 1.600 H* D Cancelled Cancelled
02/26/24 02/26/24 02/27/24
16: 22:36 05:03
Troponin I 2.070 H* D 1.620 H* 1.260 H*
02/29/24 02/29/24
00:54 08:17
Troponin I 0.341 H* 0.297 H*
Vital Signs and I&O:
Vital Signs
Temp Pulse Resp BP Pulse Ox
98 F 72 16 130/70 100
02/29/24 07:06 02/29/24 07:30 02/29/24 07:06 02/29/24 07:08 02/29/24 07:08
Vital Signs
Temp Pulse Resp BP Pulse Ox
98 F 72 16 130/70 100
02/29/24 07:06 02/29/24 07:30 02/29/24 07:06 02/29/24 07:08 02/29/24 07:08
Intake & Output
02/27/24 02/28/24 02/29/24 03/01/24
06:59 06:59 06:59 06:59
Intake Total 240 / 240 940 / 940 780 / 780
Output Total 1450 / 1450 950 / 950 2380 / 2380
Balance -1210 / -1210 -10 / -10 -1600 / -1600
Physical Exam
Physical Exam
GEN: AAOx3
HEENT: EOMI, MMM
LUNGS: No audible wheeze
CV: SR on tele
ABD: ND
EXT: No edema B/L
NEURO: Gross non-focal
SKIN: No rash
--- NOTE | 2024-02-29 09:12 | W.PN.HOSP.TC ---
Addendum entered and electronically signed by Vipul Keenan DO 02/29/24 17:14:
I updated patient's [id number] who happens to be a hospitalist in [place]. Her name is Aissatou [phone].
She agrees with plan of care and plan for SNF on discharge.
Answered all questions.
Addendum entered and electronically signed by Vipul Keenan DO 02/29/24 16:32:
I left a voicemail for patient's son Tavares to call me back for an update.
Original Note:
Today's Communication/Plan
-
PT/OT
Monitor hemoglobin
Assessment / Plan
Assessment / Plan
Gen-AAOx3, NAD, hard of hearing
HEENT-NC, AT, anicteric, clear oral mm
Neck-supple
CV-reg, no M, +S1/S2
Lungs-clear B/L
Abd-soft, NT, ND
Ext-no edema
Musculoskeletal-no cyanosis, clubbing
Skin-warm and dry
Neuro-grossly non-focal
Psych-calm, cooperative
Type II [place] -due to demand ischemia due to acute symptomatic anemia. Cardiology feels that ACS was ruled out. Troponin trended down. Cardiology holding off on catheterization unless she has recurrence of symptoms. Vague chest pain noted last
night with unremarkable troponin compared to previous. Asymptomatic currently. Goal of ambulation today with PT.
Acute anemia -microcytic. Known history of iron deficiency, history of iron transfusions in the past. Records reviewed. Hemoglobin was 13 in September, 12.2 in January 2024 (confirmed with PCP office). Patient denies melena or hematochezia. Last
colonoscopy, EGD was 2018 which did not reveal any bleeding source. Apparently had a capsule endoscopy 2013 that was unrevealing.
Hemoglobin on 02/26 was 7.3, transfused 1 unit of blood, hemoglobin 8.5 today.
Labs confirm iron deficiency anemia.
Etiology of anemia suspected to be acute on chronic GI blood loss anemia.
EGD completed 02/27 showing a large hiatal hernia with multiple superficial Cheikh ulcers/erosions, no active bleeding. Mild gastritis, biopsied. Normal duodenum. GI recommends Protonix 40 mg twice daily for 8 weeks, sucralfate 1 g 4 times daily
x 2 weeks. Outpatient follow-up.
SHIRLEY on CKD 3b - Creatinine was 1.3 in Jan 2024 (spoke with PCP office). Admission hemoglobin 1.3, peaked at 1.6, 1.5 today. Monitor for now. Etiology of SHIRLEY likely due to anemia, hypotension.
CAD -history of 2 stents.
Paroxysmal atrial fibrillation -not on chronic anticoagulation. Continue aspirin.
Essential hypertension -hypotensive 02/26 with bradycardia, suspect medication effect due to Toprol XL and amlodipine. Amlodipine discontinued, Toprol-XL dose cut in half. Heart rate and blood pressure improved. Hypertensive overnight likely due
to chest pain. Blood pressure improved this morning.
Hyperlipidemia -on pravastatin.
Hypothyroidism -continue levothyroxine.
Rheumatoid arthritis
Hearing impairment -uses hearing aids but they are currently at home.
IBS
Full code
PT/OT
Dispo -potential discharge over the next 24 hours if stable and cleared by cardiology.
Anticipated Discharge: Within 24 hours
Subjective/Interval History
-
Date of Service: February 29, 2024
Patient seen and examined. No complaints.
Objective Data
-
Labs:
Laboratory Results
02/29/24 02/29/24
00:54 03:59
WBC 9.6 8.9
Hgb 9.0 L 8.5 L
Hct 29.4 L 28.0 L
Plt Count 376 368
Sodium 137 141
Potassium 4.6 4.4
Chloride 108 H 111 H
Carbon Dioxide 17 L 19 L
BUN 39 H 38 H
Creatinine 1.5 H 1.5 H
Glucose 130 H 94
Calcium 9.6 9.5
Vital Signs:
Vital Signs
Temp Pulse Resp BP Pulse Ox
98 F 72 16 130/70 100
02/29/24 07:06 02/29/24 07:30 02/29/24 07:06 02/29/24 07:08 02/29/24 07:08
I&O
02/28/24 02/29/24 03/01/24
06:59 06:59 06:59
Intake Total 940 / 940 780 / 780
Output Total 950 / 950 2380 / 2380
Balance -10 / -10 -1600 / -1600
Review of Systems
-
History Source: Patient
All other systems: Reviewed and negative
[2024-02-29] MEDS: NORVASC 10 MG PO (09:29)
--- NOTE | 2024-02-29 11:23 | PTCARENOTE ---
Emptied 550 ml of clear yellow urine through the patient's right suprapubic urostomy using aseptic technique. The patient tolerated the catheterization well. The urostomy is budded and red. The surrounded skin is clean, dry, and intact. Redressed
her urostomy with gauze.
[2024-02-29 11:28] LABS: tTG IgA Antibody 4.5 EU/ml (0-19); tTG IgG Antibody 10.9 EU/ml (0-19)
[2024-02-29] MEDS: PLAVIX 75 MG PO (11:58)
--- NOTE | 2024-02-29 13:35 | CM ---
Reviewed chart. Met with Mrs. Monreal to review discharge plans. We reviewed the recommendations of SNF/Rehab. We reviewed SNF/Options. Telephone call to [facility] Liaison to make the referral. [facility] currently ford not have any beds
available. Sent the referral. Telephone call to [facility] Admission to make the referral. Sent the referral. Telephone call to [facility] SNF Liaison to make the referral. Sent referral. Telephone call to [facility] Admissions to make
the referral. Left message. Sent clinical. Awaiting response from SNF's regarding ability to accept. Medical work-up in progress. The discharge plan is to go to SNF/Rehab. when medically stable and bed available
--- NOTE | 2024-02-29 16:06 | PTCARENOTE ---
The patient is aaox3, vital signs remain stable. NSR with a 1st degree AVB note on the monitor. She Has had no complaints of chest pain. She has been ambulatory in her room and OOB to the chair.
--- NOTE | 2024-02-29 21:25 | PTCARENOTE ---
received patient at the change of shift. AAOx3. [place]. family at the bedside. patient states feeling much better and eager to go home. SR with a first degree AVB on tele 70s. bp stable. denies any pain at this time. straight cath through the patients
Rt suprapubic urostomy- 490 ml of yellow urine. cleansed stoma and applied dressing per patients request. educated patient to inform RN with any changes overnight. call rosales within reach. calls appropriately.
[2024-02-29] MEDS: SENOKOT 17.2 MG PO (22:33)
[2024-02-29] MEDS: SEROQUEL 25 MG PO (22:33)
[2024-02-29] MEDS: PRAVACHOL 20 MG PO (22:33)
[2024-02-29 23:22] LABS: IgA 156 mg/dl (70-400)
[2024-03-01] VITALS (15 sets, daily range): BP systolic 71–128; BP diastolic 49–76; PULSE 67–73
[2024-03-01 06:08] LABS: Hematocrit 28.5 % (37.0-47.0); Hemoglobin 8.6 g/dL (12.0-16.0); Mean Corp Hgb Conc. 30.2 g/dL (33.0-37.0); Mean Corpuscular Hgb 22.7 pg (27.0-31.0); Mean Corpuscular Volume 75.2 fL (81.0-99.0); Mean Platelet Volume 10.6 fL (7.4-10.4); Platelet Count 314 10^3/uL (130-400); Red Blood Cell Count 3.79 10^6/uL (4.20-5.40); Red Cell Dist. Width 17.2 % (11.5-14.5); White Blood Cell Count 6.8 10^3/uL (4.8-10.8)
[2024-03-01 06:11] LABS: Blood Urea Nitrogen 34 mg/dl (7-17); Calcium 9.6 mg/dl (8.4-10.2); Carbon Dioxide 21 mmol/L (22-30); Chloride 110 mmol/L (98-107); Estimated Creatinine Clearance 22 ml/min; Glucose 80 mg/dl (70-99); Potassium 4.4 mmol/L (3.5-5.1); Sodium 142 mmol/L (135-145); eGFR 31.21
[2024-03-01] MEDS: SYNTHROID 112 MCG PO (06:36)
[2024-03-01] MEDS: CARAFATE 1 GRAM PO ×4 (07:43→22:48)
--- NOTE | 2024-03-01 08:23 | W.PN.CARDCBS ---
Addendum entered and electronically signed by Layo Ruiz MD 03/01/24 10:13:
I saw and examined the patient.
The Mold Yard Worker's note was reviewed and I agree with the note.
Comment: Briefly, 84-year-old woman presenting with chest discomfort found to have NSTEMI with peak troponin of 2.1
Unfortunately hospital course was complicated by anemia and EGD here identified ulceration, gastritis and large hiatal hernia
Resting comfortably this morning, not reporting any chest discomfort to me
Plan for medical therapy with aspirin/Plavix and statin as well as beta-rachid, calcium channel rachid and nitrate as antianginals
Consideration of ischemic evaluation as an outpatient if she is able to tolerate dual antiplatelet therapy without precipitating worsening anemia
Reporting lightheadedness this morning with blood pressure reading 90s over 50s
Plan to pare back antihypertensives, would decrease amlodipine dose to 2.5 mg daily
Original Note:
Today's Communication / Plan
-
-Outpatient doses of amlodipine 10 mg daily, Isordil 30 mg daily, pravastatin 20 mg daily and aspirin continued
-New to Toprol XL, Plavix
Impression / Plan
-
PCP: Dr. Ridley at [facility]
Heme: Dr. Duncan [facility]ematology at [place]
Cardiology: Dr. Rossi,
Impression:
Admitted with chest pain 02/26/24
NSTEMI, peak Troponin 2.07
CAD
BMS x2 to Diag-2016
Chronic iron deficiency anemia
h/o GIB with cratered ulcer and transfusions at [facility] 2019
Heme positive anemia, multiple superficial Cheikh ulcers/ erosions, but no active bleeding or stigmata and large hiatal hernia on EGD 02/28/24
SHIRLEY on CKD 3b
Paroxysmal Afib
Not chronically anticoagulated due to h/o GIB and patient choice
Hypertension
Hep C, acquired from transfusion, treated
FMR
Echo 05/2021: [facility] study, Normal EF, mild AI
Echo 02/27/24: EF 55 to 60%, mild concentric LVH, mild aortic regurgitation, mild TR
Plan:
-No chest pain overnight
-Chest pain on admission and Troponin peaked at 2.07. Troponin trending down since admission despite recurrences of pain 02/28/24 PM. Chest pain improved with NTG SL x1 and also Chloraseptic spray on 02/28/24. ECG without acute ischemic change. Echo
without WMA this admission.
-Outpatient dose of amlodipine 10 mg daily has been continued
-Outpatient dose of Isordil 30 mg daily has been continued
-Outpatient dose of Lopressor changed to Toprol XL 50 mg BID
-Outpatient dose of aspirin 81 mg daily continued
-New to Plavix 75 mg daily starting 02/29/24
-LDL 58, outpatient dose of pravastatin 20 mg daily has been continued
-Cardiac rehab consulted
-Will attempt to manage elevated Troponin medically for now. Add Plavix and follow labs. If patient can tolerate DAPT and has recurrent pain then could consider a cath in the future when she follows up with her primary detective private eye.
-Patient with h/o BMS x2 to Diag-1 at [facility] in 2016.
-Hgb down to 7.3 on admission and patient transfused with 1 unit PRBCs. GI work-up found multiple superficial Cheikh ulcers/ erosions, but no active bleeding or stigmata and large hiatal hernia on EGD 02/28/24. GI has cleared patient to proceed
with any necessary cardiac procedures.
-Patient has a h/o iron def anemia and a h/o GIB due to gastric ulcer in 2019. Heparin gtt was stopped with dropping Hgb. 1 unit PRBCs transfused this admission.
-Remote h/o syncope and had loop recorder placed, but it reached end of battery life and was not replaced. Loop previously detected paroxysmal Afib and patient has a h/o CVA, but was not on OAC due to h/o iron def anemia and GIB.
-Patient has not seen her fish technologist in years and has a h/o CKD. Cre stable at 1.5 to 1.6
-Stable for transfer to rehab from a cardiac standpoint
HPI: 84-year-old woman with known history of coronary artery disease, atrial fibrillation, hypertension, dyslipidemia, chronic kidney disease, chronic anemia presented to [facility] emergency department via emergency medical services for
evaluation of chest pain. She notes that her chest pain started last night at around 10:30 PM after she had something to eat. She describes this as an intense pain at the center of her chest which radiated across the chest to her right shoulder
and also into her back. Pain persisted through the night and was unable to sleep well. She called emergency medical services this morning due to continued symptoms. On route she received aspirin as well as nitroglycerin leading to complete
resolution of her symptoms. She is asymptomatic on arrival to the emergency department. She reports that for the preceding 6 months she has had new dyspnea on exertion.
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
Subjective
Date of Service: March 01, 2024
Feels well, ready for discharge
Objective
Labs:
03/01/24 05:49
03/01/24 05:49
Labs
Hgb 8.6 g/dL (12.0-16.0) L 03/01/24 05:49
Hct 28.5 % (37.0-47.0) L 03/01/24 05:49
Plt Count 314 10^3/uL (130-400) 03/01/24 05:49
APTT 68.9 Sec (23.4-35.0) H 02/27/24 13:16
Sodium 142 mmol/L (135-145) 03/01/24 05:49
Potassium 4.4 mmol/L (3.5-5.1) 03/01/24 05:49
BUN 34 mg/dl (7-17) H 03/01/24 05:49
Creatinine 1.6 mg/dL (0.6-1.0) H 03/01/24 05:49
Glucose 80 mg/dl (70-99) 03/01/24 05:49
Troponins
02/29/24 02/29/24 02/29/24
00:54 08:17 16:00
Troponin I 0.341 H* 0.297 H* Cancelled
Vital Signs and I&O:
Vital Signs
Temp Pulse Resp BP Pulse Ox
98.3 F 61 18 114/74 99
03/01/24 08:08 03/01/24 08:08 03/01/24 08:08 03/01/24 04:00 03/01/24 08:08
Vital Signs
Temp Pulse Resp BP Pulse Ox
98.3 F 61 18 114/74 99
03/01/24 08:08 03/01/24 08:08 03/01/24 08:08 03/01/24 04:00 03/01/24 08:08
Intake & Output
02/28/24 02/29/24 03/01/24 03/02/24
06:59 06:59 06:59 06:59
Intake Total 940 / 940 780 / 780 1280 / 1280
Output Total 950 / 950 2380 / 2380 1914 / 1914
Balance -10 / -10 -1600 / -1600 -635 / -635
Physical Exam
Physical Exam
GEN: AAOx3
HEENT: EOMI, MMM
LUNGS: No audible wheeze
CV: SR on tele
ABD: ND
EXT: No edema B/L
NEURO: Gross non-focal
SKIN: No rash
[2024-03-01] MEDS: CYMBALTA DELAYED RELEASE 30 MG PO (08:29)
[2024-03-01] MEDS: LIDOCAINE 4% PATCH 1 PATCH TOPICAL (08:29)
--- NOTE | 2024-03-01 08:34 | W.PN.HOSP.TC ---
Addendum entered and electronically signed by Vipul Keenan DO 03/01/24 14:04:
Blood pressure unfortunately dropped again this morning. Suspect related to amlodipine. She is not orthostatic. Amlodipine dose reduced to 2.5 mg daily.
Monitor for 24 hours.
Possible discharge to SNF tomorrow if blood pressure stable.
Original Note:
Today's Communication/Plan
-
Discharge planning
Assessment / Plan
Assessment / Plan
Gen-AAOx3, NAD, hard of hearing
HEENT-NC, AT, anicteric, clear oral mm
Neck-supple
CV-reg, no M, +S1/S2
Lungs-clear B/L
Abd-soft, NT, ND
Ext-no edema
Musculoskeletal-no cyanosis, clubbing
Skin-warm and dry
Neuro-grossly non-focal
Psych-calm, cooperative
Type II WA -due to demand ischemia due to acute symptomatic anemia. Cardiology feels that ACS was ruled out. Troponin trended down. Cardiology holding off on catheterization unless she has recurrence of symptoms. Symptoms resolved. She states
she has had 6 months of dyspnea on exertion prior to admission but completely resolved after admission.
Echocardiogram shows LVEF 55 to 60%, mild concentric LVH, mild AR, mild TR. No regional wall motion abnormality.
Acute anemia -microcytic. Known history of iron deficiency, history of iron transfusions in the past. Records reviewed. Hemoglobin was 13 in September, 12.2 in January 2024 (confirmed with PCP office). Patient denies melena or hematochezia. Last
colonoscopy, EGD was 2018 which did not reveal any bleeding source. Apparently had a capsule endoscopy 2013 that was unrevealing.
Hemoglobin on 02/26 was 7.3, transfused 1 unit of blood. Hemoglobin has remained stable, 8.6 today.
Labs confirm iron deficiency anemia.
Etiology of anemia suspected to be acute on chronic GI blood loss anemia.
EGD completed 02/27 showing a large hiatal hernia with multiple superficial Cheikh ulcers/erosions, no active bleeding. Mild gastritis, biopsied. Normal duodenum. GI recommends Protonix 40 mg twice daily for 8 weeks, sucralfate 1 g 4 times daily
x 2 weeks. Outpatient follow-up.
SHIRLEY on CKD 3b - Creatinine was 1.3 in Jan 2024 (spoke with PCP office). Etiology of SHIRLEY likely due to anemia, hypotension. Creatinine relatively stable, 1.6.
CAD -history of 2 stents.
Paroxysmal atrial fibrillation -not on chronic anticoagulation. Continue aspirin.
Essential hypertension -hypotensive 02/26 with bradycardia, suspect medication effect due to Toprol XL and amlodipine. Amlodipine resumed by cardiology. Continue Toprol-XL, isosorbide.
Hyperlipidemia -on pravastatin.
Hypothyroidism -continue levothyroxine.
Rheumatoid arthritis -on chronic prednisone.
Hearing impairment -uses hearing aids but they are currently at home.
IBS
Chronic urinary incontinence -has a urostomy. Catheterizes herself 5-6 times daily at home.
Full code
PT/OT
Dispo -medically stable for discharge to SNF. Updated case management.
Anticipated Discharge: Today
Subjective/Interval History
-
Date of Service: March 01, 2024
Patient seen and examined. Denies chest pain. No complaints.
Objective Data
-
Labs:
Laboratory Results
03/01/24
05:49
WBC 6.8
Hgb 8.6 L
Hct 28.5 L
Plt Count 314
Sodium 142
Potassium 4.4
Chloride 110 H
Carbon Dioxide 21 L
BUN 34 H
Creatinine 1.6 H
Glucose 80
Calcium 9.6
Vital Signs:
Vital Signs
Temp Pulse Resp BP Pulse Ox
98.3 F 61 18 114/74 99
03/01/24 08:08 03/01/24 08:08 03/01/24 08:08 03/01/24 04:00 03/01/24 08:08
I&O
02/29/24 03/01/24 03/02/24
06:59 06:59 06:59
Intake Total 780 / 780 1280 / 1280
Output Total 2380 / 2380 1914 / 1914
Balance -1600 / -1600 -635 / -635
Review of Systems
-
History Source: Patient
All other systems: Reviewed and negative
[2024-03-01] MEDS: MUCINEX 600 MG PO (08:53)
[2024-03-01] MEDS: PROTONIX 40 MG PO ×2 (08:53→20:03)
[2024-03-01] MEDS: SORBITRATE 30 MG PO (08:53)
[2024-03-01] MEDS: LOW STRENGTH ASPIRIN 81 MG PO (08:54)
[2024-03-01] MEDS: TYLENOL 1000 MG PO ×2 (08:54→20:03)
[2024-03-01] MEDS: VITAMIN B-12 500 MCG PO (08:55)
[2024-03-01] MEDS: PLAVIX 75 MG PO (08:55)
[2024-03-01] MEDS: PEPCID 20 MG PO (08:55)
[2024-03-01] MEDS: DELTASONE 7.5 MG PO (09:02)
[2024-03-01] MEDS: NORVASC 10 MG PO (09:03)
[2024-03-01] MEDS: TOPROL XL 25 MG PO (09:04)
[2024-03-01] MEDS: MIRALAX 17 GRAMS PO (09:07)
[2024-03-01] MEDS: NSS 500 IV (10:00)
--- NOTE | 2024-03-01 11:00 | PTCARENOTE ---
Pt BP 71/51 for PT, who said she checked both arms, Pt c/o feeling slightly lightheaded while lying in bed. Dr Keenan notified, NSS 500 ml bolus ordered and given. Pt feeling much beeter now after bolus, BP 105/75.
--- NOTE | 2024-03-01 11:20 | CM ---
Reviewed chart. Met with Mrs. Monreal to review discharge plans. She review with her that [facility] and [facility] SNF can offer a bed. Telephone call to [facility] Admissions to let them know that she is not ready for transfer today. Left
message. Faxed requested insurance cards to [facility]. Updated [facility] SNF liaison also. Will need to check in a.m if [facility] with have a bed. Medical work-up in progress. The discharge plan is to go to SNF Rehab. [facility] vs.
[facility] pending bed availability when medically stable.
--- NOTE | 2024-03-01 15:03 | PTCARENOTE ---
Pt cath x2 this shift via urostomy, for a total of 1025 of yellow urine with some mucous threads.
[2024-03-01 15:04] LABS: Endomysial IgA Antibody Titer <1:10 (<1:10)
[2024-03-01] MEDS: TOPROL XL PO (20:00)
[2024-03-01] MEDS: SEROQUEL 25 MG PO (22:48)
[2024-03-01] MEDS: PRAVACHOL 20 MG PO (22:48)
[2024-03-01] MEDS: SENOKOT 17.2 MG PO (22:48)
--- NOTE | 2024-03-02 00:52 | PTCARENOTE ---
Received patient at change of shift. SR on the monitor, HR in the 70s. VSS. Pt complained of full bladder, suprapubically cathed. No other complaints from pt at this time, call rosales within reach.
[2024-03-02 03:48] VITALS: BP 122/70
[2024-03-02 05:17] LABS: Blood Urea Nitrogen 39 mg/dl (7-17); Calcium 9.8 mg/dl (8.4-10.2); Carbon Dioxide 21 mmol/L (22-30); Chloride 110 mmol/L (98-107); Estimated Creatinine Clearance 22 ml/min; Glucose 89 mg/dl (70-99); Potassium 4.4 mmol/L (3.5-5.1); Sodium 141 mmol/L (135-145); eGFR 31.21
[2024-03-02] MEDS: SYNTHROID 112 MCG PO (05:54)
[2024-03-02 07:26] VITALS: BP 143/93
--- NOTE | 2024-03-02 08:04 | W.PN.CARDCBS ---
Addendum entered and electronically signed by Dennis Michelle MD 03/02/24 10:20:
84-year-old woman with non-ST segment elevation [place], troponin approximately 2 in the setting of GI bleed and anemia with Cheikh's ulcer and hiatal hernia. Managed medically, plan was for discharge but hypotensive. Amlodipine has been decreased.
PMH: Chronic iron deficiency anemia, history of GI bleeding, CKD 3B, paroxysmal A-fib not anticoagulated, hypertension, history of hep C, remote bare-metal stent to 2016
Allergies none
Outpatient meds reviewed
Current meds: Aspirin 81 mg a day, duloxetine, B12, Synthroid, pravastatin 20 mg a day, prednisone 7.5, Seroquel 25 nightly, isosorbide dinitrate, clopidogrel 75 a day, amlodipine 2.5 mg a day
122/70, pulse 69, respiratory to 18, sats 99%, BP last night 98/63, no distress, head neck exam unremarkable, lungs are clear, soft systolic murmur, JVD okay, abdomen benign extremities without significant edema
BUN and creatinine 39 and 1.6, stable, creatinine was 1.2 on the 28, potassium 4.4
Impression:
Admitted with chest pain 02/26/24
NSTEMI, peak Troponin 2.07
CAD
BMS x2 to Diag-2016Chronic iron deficiency anemia
h/o GIB with cratered ulcer and transfusions at [facility] 2019
Heme positive anemia, multiple superficial Cheikh ulcers/ erosions, but no active bleeding or stigmata and large hiatal hernia on EGD 02/28/24
SHIRLEY on CKD 3b
Paroxysmal Afib
Not chronically anticoagulated due to h/o GIB and patient choice
hypotension 03/01/2024-amlodipine decreased to 2.5 mg daily, BP improved 03/02/2024
Hypertension
Hep C, acquired from transfusion, treated
FMR
Plan:
Patient seems stable from a cardiac standpoint.
Okay for discharge from our view.
Recommended medications at discharge:
Aspirin 81 mg a day
Pravastatin 20 mg at bedtime
Clopidogrel 75 mg daily
Amlodipine 2.5 mg daily
Isosorbide mononitrate 30 mg daily
Metoprolol ER 12.5 mg twice daily
We will arrange for cardiac follow-up
Original Note:
Today's Communication / Plan
-
d/c with medical mgmt for CAD: DAPT w/ ASA/Plavix, Toprol (lowering dose due to bradycardia), Isosorbide (changing to mononitrate), lower dose CCB- Amlodipine 2.5 mg daily, Pravastatin
-f/u with primary automobile club travel counselor in 1-2 weeks- planning to change to [facility] cardiology.
Impression / Plan
-
PCP: Dr. Ridley at [facility]
Heme: Dr. Duncan Singer Hematology at [place]
Cardiology: Dr. Rossi,
Impression:
Admitted with chest pain 02/26/24
NSTEMI, peak Troponin 2.07
CAD
BMS x2 to Diag-2016
Chronic iron deficiency anemia
h/o GIB with cratered ulcer and transfusions at [facility] 2019
Heme positive anemia, multiple superficial Cheikh ulcers/ erosions, but no active bleeding or stigmata and large hiatal hernia on EGD 02/28/24
SHIRLEY on CKD 3b
Paroxysmal Afib
Not chronically anticoagulated due to h/o GIB and patient choice
hypotension 03/01/2024-amlodipine decreased to 2.5 mg daily, BP improved 03/02/2024
Hypertension
Hep C, acquired from transfusion, treated
FMR
Echo 05/2021: [facility] study, Normal EF, mild AI
Echo 02/27/24: EF 55 to 60%, mild concentric LVH, mild aortic regurgitation, mild TR
Plan:
-No chest pain overnight
-Chest pain on admission and Troponin peaked at 2.07. Troponin trending down since admission despite recurrences of pain 02/28/24 PM. Chest pain improved with NTG SL x1 and also Chloraseptic spray on 02/28/24. ECG without acute ischemic change. Echo
without WMA this admission.
-Outpatient dose of amlodipine 10 mg decreased to 2.5 mg with improvement in BPs to 122/70 03/02/2024
-Change outpatient Isordil 30 mg daily to Isosorbide mononitrate 30 mg daily-less likely to have hypotension on long-acting form of med - I changed order
-Outpatient dose of Lopressor changed to Toprol XL 25 mg BID- will decrease to 12.5 mg BID due to bradycardia at night with HRs 40s
-Outpatient dose of aspirin 81 mg daily continued
-New to Plavix 75 mg daily starting 02/29/24
-LDL 58, outpatient dose of pravastatin 20 mg daily has been continued
-Cardiac rehab consulted
-Will attempt to manage elevated Troponin medically for now. Added Plavix and follow Hgb If patient can tolerate DAPT and has recurrent pain then could consider a cath in the future when she follows up with her primary automobile club travel counselor. She intends to
switch to [facility] cardiology.
-Patient with h/o BMS x2 to Diag-1 at [facility] in 2016.
-Hgb down to 7.3 on admission and patient transfused with 1 unit PRBCs. GI work-up found multiple superficial Cheikh ulcers/ erosions, but no active bleeding or stigmata and large hiatal hernia on EGD 02/28/24. GI has cleared patient to proceed
with any necessary cardiac procedures. Hgb 8.6 03/02/24.
-Patient has a h/o iron def anemia and a h/o GIB due to gastric ulcer in 2019. Heparin gtt was stopped with dropping Hgb. 1 unit PRBCs transfused this admission.
-Remote h/o syncope and had loop recorder placed, but it reached end of battery life and was not replaced. Loop previously detected paroxysmal Afib and patient has a h/o CVA, but was not on OAC due to h/o iron def anemia and GIB.
-Patient has not seen her press pipe inspector in years and has a h/o CKD. Cre stable at 1.5 to 1.6
-Stable for transfer to rehab from a cardiac standpoint
HPI: 84-year-old woman with known history of coronary artery disease, atrial fibrillation, hypertension, dyslipidemia, chronic kidney disease, chronic anemia presented to [facility] emergency department via emergency medical services for
evaluation of chest pain. She notes that her chest pain started last night at around 10:30 PM after she had something to eat. She describes this as an intense pain at the center of her chest which radiated across the chest to her right shoulder
and also into her back. Pain persisted through the night and was unable to sleep well. She called emergency medical services this morning due to continued symptoms. On route she received aspirin as well as nitroglycerin leading to complete
resolution of her symptoms. She is asymptomatic on arrival to the emergency department. She reports that for the preceding 6 months she has had new dyspnea on exertion.
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
Subjective
Date of Service: March 02, 2024
no recurrent CP
Amlodipine decreased yest for hypotension, BP improved 03/01/2024 to 122/70
Hgb stable 8.6
Objective
Labs:
03/01/24 05:49
03/02/24 03:59
Labs
Hgb 8.6 g/dL (12.0-16.0) L 03/01/24 05:49
Hct 28.5 % (37.0-47.0) L 03/01/24 05:49
Plt Count 314 10^3/uL (130-400) 03/01/24 05:49
APTT 68.9 Sec (23.4-35.0) H 02/27/24 13:16
Sodium 141 mmol/L (135-145) 03/02/24 03:59
Potassium 4.4 mmol/L (3.5-5.1) 03/02/24 03:59
BUN 39 mg/dl (7-17) H 03/02/24 03:59
Creatinine 1.6 mg/dL (0.6-1.0) H 03/02/24 03:59
Glucose 89 mg/dl (70-99) 03/02/24 03:59
Troponins
02/29/24 02/29/24 02/29/24
00:54 08:17 16:00
Troponin I 0.341 H* 0.297 H* Cancelled
Vital Signs and I&O:
Vital Signs
Temp Pulse Resp BP Pulse Ox
98.5 F 69 18 122/70 99
03/02/24 03:53 03/02/24 05:00 03/02/24 03:53 03/02/24 03:48 03/02/24 03:53
Vital Signs
Temp Pulse Resp BP Pulse Ox
98.5 F 69 18 122/70 99
03/02/24 03:53 03/02/24 05:00 03/02/24 03:53 03/02/24 03:48 03/02/24 03:53
Intake & Output
02/29/24 03/01/24 03/02/24 03/03/24
06:59 06:59 06:59 06:59
Intake Total 780 / 780 1280 / 1280 480 / 480
Output Total 2380 / 2380 1915 / 1915 1675 / 1675
Balance -1600 / -1600 -635 / -635 -1195 / -1195
Physical Exam
Physical Exam
GEN: No distress, awake, Ox3
HEENT: supple, anicteric, mmm
LUNGS: CTA, no wheezes/rales
CV: Reg, S1/S2, 1/6 systolic murmur LSB
ABD: soft, BS+, NT/ND
EXT: No edema
NEURO: Gross non-focal
SKIN: No rash
[2024-03-02] MEDS: CARAFATE PO (08:27)
--- NOTE | 2024-03-02 08:31 | W.PN.HOSP.TC ---
Today's Communication/Plan
-
Continue current care
Assessment / Plan
Assessment / Plan
Gen-AAOx3, NAD, hard of hearing
HEENT-NC, AT, anicteric, clear oral mm
Neck-supple
CV-reg, no M, +S1/S2
Lungs-clear B/L
Abd-soft, NT, ND
Ext-no edema
Musculoskeletal-no cyanosis, clubbing
Skin-warm and dry
Neuro-grossly non-focal
Psych-calm, cooperative
Type II [place] -due to demand ischemia due to acute symptomatic anemia. Cardiology feels that ACS was ruled out. Troponin trended down. Cardiology holding off on catheterization unless she has recurrence of symptoms. Symptoms resolved. She states
she has had 6 months of dyspnea on exertion prior to admission but completely resolved after admission.
Echocardiogram shows LVEF 55 to 60%, mild concentric LVH, mild AR, mild TR. No regional wall motion abnormality.
Acute anemia -microcytic. Known history of iron deficiency, history of iron transfusions in the past. Records reviewed. Hemoglobin was 13 in September, 12.2 in January 2024 (confirmed with PCP office). Patient denies melena or hematochezia. Last
colonoscopy, EGD was 2018 which did not reveal any bleeding source. Apparently had a capsule endoscopy 2013 that was unrevealing.
Hemoglobin on 02/26 was 7.3, transfused 1 unit of blood. Hemoglobin has remained stable, 8.6 today.
Labs confirm iron deficiency anemia.
Etiology of anemia suspected to be acute on chronic GI blood loss anemia.
EGD completed 02/27 showing a large hiatal hernia with multiple superficial Cheikh ulcers/erosions, no active bleeding. Mild gastritis, biopsied. Normal duodenum. GI recommends Protonix 40 mg twice daily for 8 weeks, sucralfate 1 g 4 times daily
x 2 weeks. Outpatient follow-up.
Loose stools possibly related to bowel meds, monitor for now and can back off if needed.
SHIRLEY on CKD 3b - Creatinine was 1.3 in Jan 2024 (spoke with PCP office). Etiology of SHIRLEY likely due to anemia, hypotension. Creatinine relatively stable, 1.6.
CAD -history of 2 stents.
Paroxysmal atrial fibrillation -not on chronic anticoagulation. Continue aspirin.
Essential hypertension -hypotensive again on 03/01, suspect amlodipine effect. Dose now reduced to 2.5 mg daily. Blood pressure improved after IV fluid bolus.
Hyperlipidemia -on pravastatin.
Hypothyroidism -continue levothyroxine.
Rheumatoid arthritis -on chronic prednisone.
Hearing impairment -uses hearing aids but they are currently at home.
IBS
Chronic urinary incontinence -has a urostomy. Catheterizes herself 5-6 times daily at home.
Full code
PT/OT
Dispo -medically stable for discharge to SNF. Updated case management. No bed available until Tuesday.
Anticipated Discharge: Within 24 hours
Subjective/Interval History
-
Date of Service: March 02, 2024
Patient seen and examined. Complaining of loose stools.
Objective Data
-
Labs:
Laboratory Results
03/02/24
03:59
Sodium 141
Potassium 4.4
Chloride 110 H
Carbon Dioxide 21 L
BUN 39 H
Creatinine 1.6 H
Glucose 89
Calcium 9.8
Vital Signs:
Vital Signs
Temp Pulse Resp BP Pulse Ox
98.5 F 69 18 122/70 99
03/02/24 03:53 03/02/24 05:00 03/02/24 03:53 03/02/24 03:48 03/02/24 03:53
I&O
03/01/24 03/02/24 03/03/24
06:59 06:59 06:59
Intake Total 1280 / 1280 480 / 480
Output Total 1915 / 1915 1675 / 1675
Balance -635 / -635 -1195 / -1195
Review of Systems
-
History Source: Patient
All other systems: Reviewed and negative
[2024-03-02] MEDS: TYLENOL 1000 MG PO (09:19)
[2024-03-02] MEDS: MUCINEX 600 MG PO (09:20)
[2024-03-02] MEDS: DELTASONE 7.5 MG PO (09:20)
[2024-03-02] MEDS: SORBITRATE PO ×2 (09:20→09:40)
[2024-03-02] MEDS: LOW STRENGTH ASPIRIN 81 MG PO (09:22)
[2024-03-02] MEDS: LIDOCAINE 4% PATCH 1 PATCH TOPICAL (09:22)
[2024-03-02] MEDS: CYMBALTA DELAYED RELEASE 30 MG PO (09:22)
[2024-03-02] MEDS: PLAVIX 75 MG PO (09:23)
[2024-03-02] MEDS: NORVASC 2.5 MG PO (09:23)
[2024-03-02] MEDS: MIRALAX PO (09:23)
[2024-03-02] MEDS: TOPROL XL 25 MG PO (09:24)
[2024-03-02] MEDS: PROTONIX 40 MG PO (09:24)
[2024-03-02] MEDS: VITAMIN B-12 500 MCG PO (09:24)
--- NOTE | 2024-03-02 10:48 | W.DS.TRANS ---
DC Summary - Rfid Technician
-
Discharge Instructions:
Discharge Diagnosis/Procedures Myocardial infarction, acute anemia, GI bleed,
acute kidney injury, atrial fibrillation
Diet Low Fat,Low Cholesterol
Activity As tolerated
Driving Restrictions No driving
Bathing Restrictions None
Blood Work check CBC one week after discharge -
prescription in folder in chart
Instructions:
Stand-Alone Forms:
Changes to Home Medications: No
Discharge Medications:
DC Medications w/original date entered in [facility]
acetaminophen 500 mg tablet 1,000 mg PO BID pain/fever 02/26/24
aspirin 81 mg chewable tablet 81 mg PO DAILY Blood Clot Prevention/Tx 02/26/24
cranberry fruit concentrate 250 mg chewable tablet (Azo Cranberry) 500 mg PO DAILY Supplement 02/26/24
cyanocobalamin (vitamin B-12) 500 mcg tablet 500 mcg PO DAILY Supplement 02/26/24
duloxetine 30 mg capsule,delayed release 30 mg PO DAILY Depression 02/26/24
guaifenesin 600 mg tablet, extended release 12 hr (Mucus Relief ER) 600 mg PO DAILY Cough 02/26/24
levothyroxine 112 mcg tablet 112 mcg PO MOTUWETHFRSA Thyroid 02/26/24
levothyroxine 112 mcg tablet 168 mcg PO LITTLE Thyroid 02/26/24
pravastatin 20 mg tablet 20 mg PO HS High Cholesterol 02/26/24
prednisone 2.5 mg tablet 7.5 mg PO DAILY Anti-Inflammatory 02/26/24
quetiapine 25 mg tablet 25 mg PO HS Sleep 02/26/24
clopidogrel 75 mg tablet 75 mg PO DAILY Heart disease/condition #30 tabs 03/01/24
amlodipine 2.5 mg tablet 2.5 mg PO DAILY #0 tabs 03/02/24
famotidine 20 mg tablet 20 mg PO Q48H #0 tabs 03/02/24
isosorbide mononitrate 30 mg tablet,extended release 24 hr 30 mg PO DAILY #0 tabs 03/02/24
metoprolol succinate 25 mg tablet,extended release 24 hr 12.5 mg (1/2 x 25 mg) PO BID #0 tabs 03/02/24
nitroglycerin 0.4 mg sublingual tablet 0.4 mg sublingual [id number] PRN chest pain #0 tabs 03/02/24
pantoprazole 40 mg tablet,delayed release 40 mg PO BID #0 tabs 03/02/24
polyethylene glycol 3350 17 gram oral powder packet (HealthyLax) 17 g PO DAILYPRN PRN constipation #0 ea 03/02/24
sucralfate 1 gram tablet 1 g PO ACHS #0 tabs 03/02/24
Home Medication Changes
Pending Results: No
[2024-03-02] MEDS: IMDUR (EXTENDED RELEASE) 30 MG PO (11:33)
[2024-03-02 11:35] VITALS: BP 128/66
--- NOTE | 2024-03-02 11:37 | CM ---
Addendum entered by Jackeline Mendiola 03/02/24 11:43:
Report number is ([phone]) and fax number is ([phone]).
Original Note:
Reviewed chart. Received telephone call from [facility] admission who confirmed a bed available today. Reviewed with attending physician and she is medically stable for transfer. COVID test order and results pending. [facility] call to [facility] to make [facility] van transportation arrangements. [facility] can transport today at 2:00 p.m. Mrs Monreal made payment arrangements. Updated daughter regarding discharge plan and discharge date. Updated [facility] with
discharge date and time. Medical work-up in progress. The discharge plan is to go to [facility] when medically stable.
[2024-03-02] MEDS: CARAFATE 1 GRAM PO (12:14)
[2024-03-02 13:58] LABS: COVID-19 Antigen Negative (Negative)
--- NOTE | 2024-03-02 14:23 | PTCARENOTE ---
Pt showered this morning, tonie well.
== END 2024-03-02 14:00 | DRG 377 ==
LOC: IVU 11:07
PROVIDERS: Internal Medicine Gastroenterology; Nurse Practitioner Family; Physician Assistant; ADMITTING PHYSICIAN Hospitalist; ATTENDING PHYSICIAN Hospitalist; CONSULT PHYSICIAN Internal Medicine Cardiovascular Disease; CONSULT PHYSICIAN Internal Medicine Gastroenterology; EMERGENCY PHYSICIAN Emergency Medicine; FAMILY PHYSICIAN Internal Medicine
PROC: 0DB68ZX Excision of Stomach, Via Natural or Artificial Opening Endoscopic, Diagnostic (ICD-10-PCS; 2024-02-28)
PROC: 30233N1 Transfusion of Nonautologous Red Blood Cells into Peripheral Vein, Percutaneous Approach (ICD-10-PCS; 2024-02-28)
DX: K25.4 Chronic or unspecified gastric ulcer with hemorrhage (principal); I21.A1 Myocardial infarction type 2; D62 Acute posthemorrhagic anemia; N17.9 Acute kidney failure, unspecified; K29.71 Gastritis, unspecified, with bleeding; N18.32 Chronic kidney disease, stage 3b; I12.9 Hypertensive chronic kidney disease with stage 1 through stage 4 chronic kidney disease, or unspecified chronic kidney disease; M06.9 Rheumatoid arthritis, unspecified; F32.A Depression, unspecified; K44.9 Diaphragmatic hernia without obstruction or gangrene; K59.09 Other constipation; I25.10 Atherosclerotic heart disease of native coronary artery without angina pectoris; I48.0 Paroxysmal atrial fibrillation; I95.9 Hypotension, unspecified; M19.90 Unspecified osteoarthritis, unspecified site; E78.00 Pure hypercholesterolemia, unspecified; Z79.82 Long term (current) use of aspirin; Z79.890 Hormone replacement therapy; Z79.899 Other long term (current) drug therapy; Z87.11 Personal history of peptic ulcer disease; Z87.19 Personal history of other diseases of the digestive system; Z86.19 Personal history of other infectious and parasitic diseases
CPT/HCPCS: 88305; 71045; 71046; 76700; 80048; 80053; 80061; 82607; 82728; 82746; 82784; 83516; 83540; 83550; 83690; 83735; 84484; 85014; 85018; 85025; 85027; 85045; 85730; 86231; 86850; 86870; 86900; 86901; 86905; 86920; 86922; 87811; 88342; 93005; 93306; 96374; 97162; 97166; 97530; 99285; P9016

== ENCOUNTER 2024-05-10 12:01 | Emergency (ER) | payer MEDICARE, BC, SELFPAY ==
[2024-05-10 12:10] VITALS: BP 154/98
[2024-05-10 13:04] LABS: ALT (SGPT) 19 U/L (0-35); AST (SGOT) 30 U/L (14-36); Albumin 3.9 g/dl (3.5-5.0); Alkaline Phosphatase 84 U/L (38-126); Blood Urea Nitrogen 24 mg/dl (7-17); Calcium 9.8 mg/dl (8.4-10.2); Carbon Dioxide 20 mmol/L (22-30); Chloride 109 mmol/L (98-107); Glucose 124 mg/dl (70-99); Potassium 4.1 mmol/L (3.5-5.1); Sodium 139 mmol/L (135-145); Total Bilirubin 1.3 mg/dl (0.2-1.3); Total Protein 6.8 g/dl (6.3-8.2); eGFR 44.08
[2024-05-10 13:20] LABS: % Basophils 0.6 % (0-2); % Eosinophils 1.5 % (0-6); % Immature Granulocytes 0.2 % (0-0.5); % Lymphocytes 8.3 % (20.5-51.1); % Monocytes 10.9 % (1.7-9.3); % Neutrophils 78.5 % (42.2-75.2); Absolute Basophils 0.1 10^3/uL (0-0.2); Absolute Eosinophils 0.1 10^3/uL (0-0.7); Absolute Lymphocytes 0.7 10^3/uL (1.2-3.4); Absolute Neutrophils 6.8 10^3/uL (1.4-6.5); Hematocrit 40.5 % (37.0-47.0); Hemoglobin 12.7 g/dL (12.0-16.0); Mean Corp Hgb Conc. 31.4 g/dL (33.0-37.0); Mean Corpuscular Hgb 25.5 pg (27.0-31.0); Mean Corpuscular Volume 81.2 fL (81.0-99.0); Nucleated Red Blood Cells % 0 %; Red Blood Cell Count 4.99 10^6/uL (4.20-5.40); White Blood Cell Count 8.7 10^3/uL (4.8-10.8)
[2024-05-10 13:21] LABS: Troponin I 0.049 ng/ml
[2024-05-10 14:31] LABS: Platelet Count 200 10^3/uL (130-400)
[2024-05-10 14:32] LABS: Anisocytosis 1+; Hypochromasia Slight; Microcytosis 1+; Normal RBC Morphology No; Ovalocytes Slight
[2024-05-10 14:57] VITALS: BP 166/83
[2024-05-10 15:00] VITALS: BP 139/96
[2024-05-10 15:13] VITALS: BMI 26.2
--- NOTE | 2024-05-10 15:21 | ED.GENMED ---
History of Present Illness
General
Chief Complaint: Chest Problem
Source: patient
Exam Limitations: none
Time Seen by Provider: 05/10/24 14:52
Nursing documentation reviewed up to this point in time: agreed with
History of Present Illness
History of Present Illness:
84-year-old female with past with history of paroxysmal A-fib, CAD, hypertension hyperlipidemia presenting to the emergency department today with an episode of chest heaviness that lasted for few minutes then recurred a few hours later. This was 3
to 4 hours after arrival to the ER. No associated shortness of breath nausea vomiting or diaphoresis. No recent illness. Currently asymptomatic for multiple hours.
Past History
Past History
ED Past Medical History: Other (Agree with documented past medical history Patient self catheterizes)
ED Past Surgical History: Other (Agree with documented past surgical history)
Social History
Tobacco: Non-smoker
Personal: Single
Living: alone
Review of Systems
Review of Systems
Allergies reviewed?: Yes
All Other Systems: ROS reviewed and negative except as documented in HPI and ROS
Phy Exam
Physical Exam
Physical Exam:
GENERAL: Alert , in no apparent distress
EYE: pupils equal and reactive
NECK: Supple, no significant adenopathy.
ENT: o/p clr, mmm.
CARDIAC: Regular rate and rhythm .
LUNGS: Clear breath sounds bilaterally, no acute respiratory distress, no wheezes/rales/rhonchi
ABDOMEN: Soft, without focal tenderness, no r/g, no cvat
NEUROLOGICAL: Alert and oriented, no focal neuro deficits
SKIN: Warm and dry, skin intact.
MUSCULOSKELETAL: No edema, well perfused.
PSYCH: Normal and appropriate interaction.
Course
Orders/Labs/Results
Orders:
Orders
05/10/24 12:10
EKG [Electrocardiogram (*1)] Urgent
Reason for Study: Chest Pain
EKG- Treatment ONCE
05/10/24 12:26
Complete Blood Count/With Diff Urgent
Comprehensive Metabolic Panel Urgent
Troponin I Urgent
05/10/24 15:01
EKG [Electrocardiogram (*1)] Urgent
Reason for Study: Chest Pain
EKG- Treatment ONCE
05/10/24 15:19
Troponin I Urgent
05/10/24 15:22
Chest [CR Chest - 2 Views ] Urgent
Comment:
Reason For Exam: right cp
Abnormal Lab Results
05/10/24 05/10/24
12:26 15:19
MCH 25.5 L pg
(27.0-31.0)
MCHC 31.4 L g/dL
(33.0-37.0)
Absolute Neuts (auto) 6.8 H 10^3/uL
(1.4-6.5)
Absolute Lymphs (auto) 0.7 L 10^3/uL
(1.2-3.4)
Absolute Monos (auto) 1.0 H 10^3/uL
(0.1-0.6)
Neutrophils % 78.5 H %
(42.2-75.2)
Lymphocytes % 8.3 L %
(20.5-51.1)
Monocytes % 10.9 H %
(1.7-9.3)
Chloride 109 H mmol/L
(98-107)
Carbon Dioxide 20 L mmol/L
(22-30)
BUN 24 H mg/dl
(7-17)
Creatinine 1.2 H mg/dL
(0.6-1.0)
Glucose 124 H mg/dl
(70-99)
Troponin I 0.049 H* ng/ml 0.049 H* ng/ml
05/10/24 12:26
05/10/24 12:26
Vital Signs
Initial and Last Documented VS:
Initial Vital Signs
Temp Pulse Resp BP Pulse Ox
97.5 F 92 18 154/98 99
05/10/24 12:10 05/10/24 12:10 05/10/24 12:10 05/10/24 12:10 05/10/24 12:10
Last Documented Vital Signs
Temp Pulse Resp BP Pulse Ox
97.5 F 84 18 139/96 96
05/10/24 12:10 05/10/24 15:15 05/10/24 15:15 05/10/24 15:00 05/10/24 15:20
MDM/Problems Addressed
MDM/Problems Addressed:
84-year-old female presenting to the emergency department with right sided chest heaviness without radiation, no palliation or provocation no associated symptoms nausea vomiting or diaphoresis. Currently asymptomatic initial EKG nonischemic
troponin negative labs unremarkable and at patient's baseline. Repeated troponin without any significant increase. Chest x-ray normal repeated without acute changes. Of note the patient did have some intermittent elevated heart rates that were
sinus without any significant morphology change. Would last roughly 10 seconds at a time would happen every 10 minutes or so with heart rate around 140. This was discussed with cardiology they recommended slight increase in her metoprolol dose and
otherwise can follow-up. She was asymptomatic throughout ER stay. She was given return precautions. Otherwise advised for close outpatient follow-up.
*Critical Care Note
Total Time (30-74mins, 75-104mins- exclusive of procedures): Not Applicable
ED Attending Note
-
Portions of this chart may have been created with voice recognition software.� Occasional wrong word or��sound alike� substitutions may have occurred due to the inherent limitations of voice recognition software.
Discharge Plan
Departure
Patient Disposition: Home (Routine Discharge)
Date of Disposition: 05/10/24
Time of Disposition: 17:18
Patient with high blood pressure during this ER visit?: No
Condition: Good
Covid-19: Not Applicable
Discharge Problem:
Chest pain
Instructions: Chest Pain DCA Follow Up
Prescriptions:
No Action
quetiapine 25 mg Tablet
25 mg PO HS
acetaminophen 500 mg Tablet
1,000 mg PO BID
cyanocobalamin (vitamin B-12) 500 mcg Tablet
500 mcg PO DAILY
prednisone 2.5 mg Tablet
7.5 mg PO DAILY
aspirin 81 mg Tablet,Chewable
81 mg PO DAILY
pravastatin 20 mg Tablet
20 mg PO HS
levothyroxine 112 mcg Tablet
112 mcg PO MOTUWETHFRSA
levothyroxine 112 mcg Tablet
168 mcg PO LITTLE
duloxetine 30 mg Capsule,Delayed Release(Dr/Ec)
30 mg PO DAILY
guaifenesin [Mucus Relief ER] 600 mg Tablet Extended Release 12hr
600 mg PO DAILY
Azo Cranberry 250 mg Tablet,Chewable
500 mg PO DAILY
clopidogrel 75 mg Tablet
75 mg PO DAILY Qty: 30 11RF
polyethylene glycol 3350 [HealthyLax] 17 gram Powder In Packet
17 g PO DAILYPRN PRN (Reason: constipation) Qty: 0 0RF
sucralfate 1 gram Tablet
1 g PO ACHS Qty: 0 0RF
isosorbide mononitrate 30 mg Tablet Extended Release 24 Hr
30 mg PO DAILY Qty: 0 0RF
amlodipine 2.5 mg Tablet
2.5 mg PO DAILY Qty: 0 0RF
famotidine 20 mg Tablet
20 mg PO Q48H Qty: 0 0RF
pantoprazole 40 mg Tablet,Delayed Release (Dr/Ec)
40 mg PO BID Qty: 0 0RF
nitroglycerin 0.4 mg Tablet, Sublingual
0.4 mg sublingual [id number] PRN (Reason: chest pain) Qty: 0 0RF
metoprolol succinate 25 mg Tablet Extended Release 24 Hr
12.5 mg PO BID Qty: 0 0RF
Referrals:
Khusid,Penny, DO [Family Provider] -
Activity Restrictions/Additional Instructions:
You came to the emergency department today with concerns of chest discomfort. He reviewed reassuring assessment. You did have some intermittent episodes where your heart rate was somewhat elevated. For this you can increase your metoprolol dose
to 25 mg twice daily and following up closely with cardiology. Return for any worsening, new or concerning symptoms.
Interventions
Interventions:
*Risk Screen - Suicide Last Done: 05/10/24 12:10
*General Assessment Last Done: 05/10/24 12:10
*Neglect/Abuse Screening Last Done: 05/10/24 12:10
ED- Fall Risk Assessment Last Done: 05/10/24 15:22
*ED COVID-19 Vaccine History Last Done: 05/10/24 15:14
ED- Cardiac Assessment Last Done: 05/10/24 15:20
ED- Pulmonary Assessment Last Done: 05/10/24 15:20
Discharge Date and Time
Print Language: SPANISH
[2024-05-10 15:56] LABS: Troponin I 0.049 ng/ml
== END 2024-05-10 18:00 | disposition home or self-care (01) ==
LOC: EMR 12:01
PROVIDERS: Emergency Medicine; Physician Assistant; EMERGENCY PHYSICIAN Emergency Medicine; FAMILY PHYSICIAN Internal Medicine
DX: R07.89 Other chest pain (principal); I48.0 Paroxysmal atrial fibrillation; I10 Essential (primary) hypertension; E78.5 Hyperlipidemia, unspecified; I25.10 Atherosclerotic heart disease of native coronary artery without angina pectoris
CPT/HCPCS: 99284; 71046; 80053; 84484; 85025; 93005

== ENCOUNTER 2024-11-13 10:39 | Emergency (ER) | payer MEDICARE, BC, SELFPAY ==
[2024-11-13] VITALS (14 sets, daily range): BP systolic 130–168; BP diastolic 85–132; BMI 26.2
--- NOTE | 2024-11-13 10:59 | ED.GENMED ---
History of Present Illness
General
Chief Complaint: Heart Rate Problem
Source: patient
Exam Limitations: none
Time Seen by Provider: 11/13/24 10:40
History of Present Illness
History of Present Illness:
84-year-old female presents in referral from [facility] after seeing the doctor at [facility] routinely. She had no complaints. Doctor discovered fast heartbeat and they sent her here. EKGs in the office were concerning for A-fib or
flutter. Patient has no complaints. There is no knowledge of this arrhythmia. She is uncertain of when it started. No shortness of breath or diaphoresis. She tells me she does not take any medications however her list on her chart would suggest
otherwise.
Past History
Past History
ED Past Medical History: Other (Agree with documented past medical history Patient self catheterizes)
ED Past Surgical History: Other (Agree with documented past surgical history)
Social History
Tobacco: Non-smoker
Personal: Single
Living: alone
Phy Exam
Physical Exam
Physical Exam:
General: Well-appearing female no acute respiratory distress
HEENT: Normocephalic atraumatic
Heart: Tachycardic and irregular
Lungs: Clear bilaterally
Ext: No cyanosis or edema
Skin: warm, no rash
Course
Orders/Labs/Results
Orders:
Orders
11/13/24 10:47
EKG [Electrocardiogram (*1)] Urgent
Reason for Study: Bradycardia / Tachycardia
EKG- Treatment ONCE
Diltiazem HCl [Cardizem] 15 mg IV NOW STA
11/13/24 11:02
Diltiazem 125 mg/125 ml Nss [Cardizem] 125 mg in 125 ml IV NOW
Initial dose in mg/hr, then titrate:: 5
Titrate to keep:: Heart rate 80-100 bpm
Titrate by mg/hr:: 5 mg/hr
Frequency of titrations (minutes):: 15
Maximum dose in mg/hr:: 15
11/13/24 11:03
Complete Blood Count/With Diff Urgent
Comprehensive Metabolic Panel Urgent
TSH Reflex To Free T4 Urgent
11/13/24 11:54
Diltiazem HCl [Cardizem] 10 mg IV NOW STA
11/13/24 12:53
Electrocardiogram (*1) Urgent
Reason for Study: Tachycardia
EKG- Treatment ONCE
11/13/24 13:23
Metoprolol Xl [Toprol Xl] 25 mg PO NOW STA
Abnormal Lab Results
11/13/24
11:03
MCHC 32.8 L g/dL
(33.0-37.0)
MPV 11.4 H fL
(7.4-10.4)
Absolute Monos (auto) 1.0 H 10^3/uL
(0.1-0.6)
Lymphocytes % 19.0 L %
(20.5-51.1)
Monocytes % 11.4 H %
(1.7-9.3)
Chloride 117 H mmol/L
(98-107)
Carbon Dioxide 16 L mmol/L
(22-30)
BUN 30 H mg/dl
(7-17)
Creatinine 1.6 H mg/dL
(0.6-1.0)
Alkaline Phosphatase 147 H U/L
(38-126)
11/13/24 11:03
11/13/24 11:03
Vital Signs
Initial and Last Documented VS:
Initial Vital Signs
Pulse Resp
146 24
11/13/24 10:47 11/13/24 10:47
Last Documented Vital Signs
Temp Pulse Resp BP Pulse Ox
97.6 F 75 20 130/95 98
11/13/24 10:48 11/13/24 13:29 11/13/24 13:29 11/13/24 13:29 11/13/24 13:29
MDM/Problems Addressed
Differential Diagnosis Includes:
Patient presents in referral asymptomatic after being noticed by family doctor to have a tachycardia heart rhythm.
EKG shows a heart rate of 145. Consider atrial flutter versus fibrillation versus SVT. Will attempt to slow the heart rate down with Cardizem. Labs pending
*Pulse Oximetry
Patient hypoxic: no
*Critical Care Note
Total Time (30-74mins, 75-104mins- exclusive of procedures): Not Applicable
Update Note
Update Note:
Patient reevaluated several times. Heart rate now improved still in a flutter. Heart rate in the 70s. Still asymptomatic. Will start on Eliquis 2 and half milligrams twice a day. Will stop Plavix. Have her follow-up with her cardiology team.
Discussed with emergency room attending as well as cardiology
ED Attending Note
-
Portions of this chart may have been created with voice recognition software.� Occasional wrong word or��sound alike� substitutions may have occurred due to the inherent limitations of voice recognition software.
Discharge Plan
Departure
Patient Disposition: Home (Routine Discharge)
Date of Disposition: 11/13/24
Time of Disposition: 14:34
Patient with high blood pressure during this ER visit?: No
Discharge Problem:
Atrial flutter
Instructions: Atrial Fibrillation (DC)
Prescriptions:
New
Eliquis 2.5 mg tablet
2.5 mg PO BID Qty: 60 0RF
metoprolol succinate 25 mg tablet extended release 24 hr
25 mg PO DAILY Qty: 30 0RF
No Action
acetaminophen 500 mg Tablet
1,000 mg PO BID
cyanocobalamin (vitamin B-12) 500 mcg Tablet
500 mcg PO DAILY
prednisone 2.5 mg Tablet
7.5 mg PO DAILY
aspirin 81 mg Tablet,Chewable
81 mg PO DAILY
pravastatin 20 mg Tablet
20 mg PO HS
levothyroxine 112 mcg Tablet
112 mcg PO MOTUWETHFRSA
levothyroxine 112 mcg Tablet
168 mcg PO LITTLE
guaifenesin [Mucus Relief ER] 600 mg Tablet Extended Release 12hr
600 mg PO DAILY
Azo Cranberry 250 mg Tablet,Chewable
500 mg PO DAILY
isosorbide mononitrate 30 mg Tablet Extended Release 24 Hr
30 mg PO DAILY Qty: 0 0RF
famotidine [Pepcid] 40 mg Tablet
40 mg PO DAILY
amlodipine [Norvasc] 10 mg Tablet
10 mg PO HS
ferrous sulfate 325 mg (65 mg iron) Tablet
325 mg PO MOWEFR@1800
furosemide [Lasix] 20 mg Tablet
20 mg PO MOWEFR
duloxetine [Cymbalta] 60 mg Capsule,Delayed Release(Dr/Ec)
60 mg PO DAILY
pantoprazole 40 mg tablet,delayed release (DR/EC)
40 mg PO DAILY
metoprolol succinate 25 mg tablet extended release 24 hr
25 mg PO BID
Referrals:
Penny Ridley DO [Family Provider, Internal Medicine]
Activity Restrictions/Additional Instructions:
Start metoprolol 25mg daily. Stop plavix. Start Eliquis 2.5mg twice a day. 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
Interventions
Interventions:
*Risk Screen - Suicide Last Done: 11/13/24 10:48
*General Assessment Last Done: 11/13/24 10:48
*Neglect/Abuse Screening Last Done: 11/13/24 10:48
*ED- Fall Risk Assessment Last Done: 11/13/24 10:48
*ED COVID-19 Vaccine History Last Done: 11/13/24 10:48
ED- Cardiac Assessment Last Done: 11/13/24 10:48
ED- Pulmonary Assessment Last Done: 07/15/25 10:48
Discharge Date and Time
Print Language: YI
[2024-11-13] MEDS: CARDIZEM 125 IV (11:07)
[2024-11-13] MEDS: CARDIZEM 15 MG IV (11:07)
[2024-11-13 11:14] LABS: Hematocrit 43.6 % (37.0-47.0); Hemoglobin 14.3 g/dL (12.0-16.0); Mean Corp Hgb Conc. 32.8 g/dL (33.0-37.0); Mean Corpuscular Volume 89.7 fL (81.0-99.0); Nucleated Red Blood Cells % 0 %; Platelet Count 287 10^3/uL (130-400); Red Cell Dist. Width 13.7 % (11.5-14.5)
[2024-11-13 11:38] LABS: ALT (SGPT) 21 U/L (0-35); AST (SGOT) 25 U/L (14-36); Albumin 4.1 g/dl (3.5-5.0); Alkaline Phosphatase 147 U/L (38-126); Blood Urea Nitrogen 30 mg/dl (7-17); Calcium 9.8 mg/dl (8.4-10.2); Carbon Dioxide 16 mmol/L (22-30); Chloride 117 mmol/L (98-107); Estimated Creatinine Clearance 20 ml/min; Glucose 91 mg/dl (70-99); Potassium 3.9 mmol/L (3.5-5.1); Sodium 143 mmol/L (135-145); Total Protein 7.0 g/dl (6.3-8.2); eGFR 31.21
[2024-11-13] MEDS: TOPROL XL 25 MG PO (14:58)
[2024-11-13] MEDS: ELIQUIS 2.5 MG PO (15:00)
== END 2024-11-13 15:41 | disposition home or self-care (01) ==
LOC: EMR 10:39
PROVIDERS: Physician Assistant; EMERGENCY PHYSICIAN Emergency Medicine; FAMILY PHYSICIAN Internal Medicine
DX: I48.92 Unspecified atrial flutter (principal); Z79.82 Long term (current) use of aspirin
CPT/HCPCS: 99284; 96365; 96366 ×3; 80053; 84443; 85025; 93005